=== PATIENT | male | born 1940 | race Caucasian/White ===

== ENCOUNTER 2024-02-17 08:22 | Inpatient (IN) | payer OTHER, SELFPAY ==
[2024-02-16 17:29] VITALS: BP 149/71
[2024-02-16 17:35] VITALS: BP 142/51
[2024-02-16 17:54] LABS: % Basophils 0.2 % (0-2); % Eosinophils 0.4 % (0-6); % Immature Granulocytes 2.9 % (0-0.5); % Lymphocytes 7.2 % (20.5-51.1); % Monocytes 5.5 % (1.7-9.3); % Neutrophils 83.8 % (42.2-75.2); Absolute Immature Granulocytes 0.2 10^3/uL (0-0.05); Absolute Lymphocytes 0.6 10^3/uL (1.2-3.4); Absolute Monocytes 0.4 10^3/uL (0.1-0.6); Absolute Neutrophils 6.7 10^3/uL (1.4-6.5); Hematocrit 23.9 % (39.0-52.0); Hemoglobin 8.1 g/dL (13.0-18.0); Mean Corp Hgb Conc. 33.9 g/dL (33.0-37.0); Mean Corpuscular Hgb 30.6 pg (27.0-31.0); Mean Corpuscular Volume 90.2 fL (80.0-94.0); Mean Platelet Volume 9.6 fL (7.4-10.4); Nucleated Red Blood Cells % 0 % (-); Platelet Count 232 10^3/uL (130-400); Red Blood Cell Count 2.65 10^6/uL (4.70-6.10); Red Cell Dist. Width 13.5 % (11.5-14.5)
[2024-02-16 18:05] LABS: APTT 38.3 Sec (23.4-35.0)
[2024-02-16 18:15] LABS: ALT (SGPT) 28 U/L (0-50); AST (SGOT) 30 U/L (17-59); Albumin 3.2 g/dl (3.5-5.0); Alkaline Phosphatase 199 U/L (38-126); Blood Urea Nitrogen 29 mg/dl (9-20); Calcium 8.9 mg/dl (8.4-10.2); Carbon Dioxide 27 mmol/L (22-30); Chloride 98 mmol/L (98-107); Glucose 100 mg/dl (70-99); Potassium 3.6 mmol/L (3.5-5.1); Sodium 136 mmol/L (135-145); Total Bilirubin 0.6 mg/dl (0.2-1.3); Total Protein 5.3 g/dl (6.3-8.2); eGFR > 60.00
--- NOTE | 2024-02-16 20:34 | ED.GENMED ---
History of Present Illness
General
Chief Complaint: Rectal Bleeding
Source: patient
Exam Limitations: none
Time Seen by Provider: 02/16/24 19:50
History of Present Illness
History of Present Illness:
83-year-old male progressive fatigue weakness some shortness of breath with exertion and dark stools over 3 weeks. Seen by the primary with a gradual decrease in his hemoglobin and sent for further evaluation. No Advil or Motrin. No history of
upper GI bleeds. He does take an aspirin
Past History
Past History
ED Past Medical History: Cancer (Prostate), HTN and NIDDM
ED Past Surgical History: Orthopedic
Social History
Tobacco: Former smoker
Living: with family
Employment: Retired
Review of Systems
Review of Systems
All Other Systems: Not applicable
Constitutional: Denies fever
Cardiac: Reports no symptoms
ABD/GI: Denies abdominal pain
Phy Exam
Physical Exam
Physical Exam:
GENERAL: Alert and oriented in no apparent distress
EYE: Orbits normal.
NECK: Supple, no significant adenopathy.
ENT: Pharynx without erythema
CARDIAC: Regular rate and rhythm without any obvious murmurs.
LUNGS: Clear breath sounds,normal
ABDOMEN: Soft, without focal tenderness or distention. Stool minimally dark but test negative
NEUROLOGICAL: Alert and oriented , grossly non-focal
SKIN: Warm and dry, no rash or lesion, no discoloration, skin intact.
MUSCULOSKELETAL: Moderate bilateral lower extremity pitting edema
PSYCH: Normal and appropriate interaction.
Course
Orders/Labs/Results
Orders:
Orders
02/16/24 17:45
Type+Screen Urgent
Complete Blood Count/With Diff Urgent
Comprehensive Metabolic Panel Urgent
PTT Urgent
02/16/24 20:29
Electrocardiogram (*1) Stat
Reason for Study: Other
Other Reason for Exam: chest pain
EKG- Treatment ONCE
CR Chest - 2 Views Urgent
Comment:
Reason For Exam: sob
02/16/24 20:30
Add On- LAB Urgent
Tests Added?: probnp
IV Insert/Care/Rem.- Treatment PRN
02/16/24 21:17
NT-proBNP Urgent
Comment: ADD ON
Troponin I Urgent
02/16/24 22:44
Admit/Transfer Patient As Directed
Co-Sign Provider:
Level of Care: Observation services
Assign to:: Telemetry
Physician / Group: gabrielle
Diagnosis: anemia
Reason for Telemetry: Arrhythmia
Date to Stop Telemetry: 02/19/24
Time to Stop Telemetry: 11:00
02/16/24 22:45
Code Status As Directed
Resuscitation Status: Do not resuscitate
Reached after discussion with pt or family/Healthcare POA: Yes
DNR Bracelet Application ONCE
02/16/24 22:49
Furosemide [Lasix] 20 mg IV NOW STA
02/19/24 11:00
DC Protocol for Telemetry ONCE
Abnormal Lab Results
02/16/24
17:45
RBC 2.65 L 10^6/uL
(4.70-6.10)
Hgb 8.1 L g/dL
(13.0-18.0)
Hct 23.9 L %
(39.0-52.0)
Abs Immat Gran (auto) 0.2 H 10^3/uL
(0-0.05)
Absolute Neuts (auto) 6.7 H 10^3/uL
(1.4-6.5)
Absolute Lymphs (auto) 0.6 L 10^3/uL
(1.2-3.4)
Immature Gran % 2.9 H %
(0-0.5)
Neutrophils % 83.8 H %
(42.2-75.2)
Lymphocytes % 7.2 L %
(20.5-51.1)
APTT 38.3 H Sec
(23.4-35.0)
BUN 29 H mg/dl
(9-20)
Glucose 100 H mg/dl
(70-99)
Alkaline Phosphatase 199 H U/L
(38-126)
Total Protein 5.3 L g/dl
(6.3-8.2)
Albumin 3.2 L g/dl
(3.5-5.0)
02/16/24 17:45
02/16/24 17:45
Vital Signs
Initial and Last Documented VS:
Initial Vital Signs
Temp Pulse Resp BP Pulse Ox
98.7 F 67 18 149/71 96
02/16/24 17:29 02/16/24 17:29 02/16/24 17:29 02/16/24 17:29 02/16/24 17:29
Last Documented Vital Signs
Temp Pulse Resp BP Pulse Ox
98.7 F 78 17 179/65 97
02/16/24 17:29 02/16/24 21:15 02/16/24 21:15 02/16/24 21:15 02/16/24 21:18
MDM/Problems Addressed
Differential Diagnosis Includes:
Symptomatic anemia. May have a slight component of CHF although lungs are clear. Anemia could be a recent upper GI bleed with description of stool and elevated BUN. Also possible that this is a red [place] and that this is a bone marrow issue.
Workup in progress. Will admit for symptomatic issues.
*Radiology
Radiology exam reviewed: preliminary read by ED provider (Negative)
*Pulse Oximetry
Patient hypoxic: no
*EKG
Interpreted by ED Provider?: Yes
Interpretation: abnormal
Comparison EKG: changes noted
Heart Rate: 75
Rate: normal
Rhythm: sinus and PVC's
[place]: normal axis
Interval: normal interval and third degree heart block
QRS Pattern: normal QRS
Ischemia: no ischemia
*Critical Care Note
Total Time (30-74mins, 75-104mins- exclusive of procedures): Not Applicable
Data Reviewed
Review of Other/Old Records Reveals: Labs, Records and Testing
ED Attending Note
-
Portions of this chart may have been created with voice recognition software.� Occasional wrong word or��sound alike� substitutions may have occurred due to the inherent limitations of voice recognition software.
Discharge Plan
Departure
Patient Disposition: Admit
Date of Disposition: 02/16/24
Time of Disposition: 22:05
Presentation/result/management discussed w/ accepting MD/DO: Hospitalist
Discharge Problem:
Symptomatic anemia, Possible recent upper GI bleed, Possible CHF
Interventions
Interventions:
*Risk Screen - Suicide Last Done: 02/16/24 17:29
*General Assessment Last Done: 02/16/24 17:29
*Neglect/Abuse Screening Last Done: 02/16/24 17:29
ED- Fall Risk Assessment Last Done: 02/16/24 21:18
EM-Vtfbki-Hmorlwngaj Assessment Last Done: 02/16/24 21:18
ED- Cardiac Assessment Last Done: 02/16/24 21:18
ED- Pulmonary Assessment Last Done: 02/16/24 21:18
[2024-02-16 21:15] VITALS: BP 179/65
[2024-02-16 21:18] VITALS: BMI 26.5
[2024-02-16 21:30] VITALS: BP 163/75
[2024-02-16 21:53] LABS: NT-proBNP 5240 pg/ml; Troponin I 0.015 ng/ml
--- NOTE | 2024-02-16 22:50 | HPS.HSE ---
Family Physician
-
Family Physician: Elijah Jarquin
Chief Complaint
-
fatigue
History of Present Illness
83-year-old male past medical history of diabetes, hypertension, osteoarthritis, GERD, prostate cancer, prior neurogenic bladder presenting with progressive fatigue, weakness. He had some dizziness this morning. He denies any shortness of breath.
He denies any palpitations, chest pain.
He was noted by his primary care physician to be anemic over the past month which has gotten worse. He was started on iron supplement a month ago and has had black stool over the same period of time. He denies any change in his bowel movements.
He denies taking any NSAIDs. He drinks alcohol occasionally.
He states that he had an endoscopy 20 years ago but he is unsure why he had it done. He denies any pathology. He also had a history of colonoscopy with resection of polyp and some post polypectomy bleeding.
He has chronic lower extremity edema and a scrape on his left lower extremity which is improving.
He denies smoking.
Medical History
Past Medical History
Past Medical History: Reports Other (diabetes, hypertension, osteoarthritis, GERD, prostate cancer, prior neurogenic bladder )
Past Surgical History: Reports None
Social History
Tobacco: Non-smoker
Alcohol: Occasional
Drug: None
Family History
Family History: Not pertinent
Allergies / Home Medications
Allergies reflects when Allergies were last updated in [employer].
Home Medications with original date entered in [employer]
Allergy/Medication List:
Allergies
Allergy/AdvReac Type Severity Reaction Status Date / Time
oxycodone [Oxycodone] Allergy Itching Verified 02/16/24 17:29
Home Medications
metoprolol succinate 100 mg tablet,extended release 24 hr 150 mg PO DAILY 01/28/13
multivitamin (Daily Multi-Vitamin tablet) 1 ea PO DAILY 01/28/13
calcium carbonate 600 mg-vitamin D3 10 mcg (400 unit) tablet (Calcium 600 + D(3)) 1 tab PO QPM ##0 07/08/16
doxazosin 8 mg tablet (Cardura) 8 mg PO DAILY 07/08/16
hydrochlorothiazide 25 mg tablet 25 mg PO DAILY 07/08/16
metformin 500 mg tablet 500 mg PO BID 07/08/16
acetaminophen 500 mg tablet 1,000 mg PO HSPRN PRN rls 02/16/24
aspirin 81 mg tablet,delayed release 81 mg PO DAILY 02/16/24
cholecalciferol (vitamin D3) 125 mcg (5,000 unit) tablet (Vitamin D3) 125 mcg PO DAILY 02/16/24
cyanocobalamin (vitamin B-12) 1,000 mcg tablet 1,000 mcg PO DAILY 02/16/24
ferrous sulfate 325 mg (65 mg iron) tablet 325 mg PO DAILY 02/16/24
furosemide 20 mg tablet (Lasix) 20 mg PO DAILY 02/16/24
glucosamine sulf dipot chlr,msm,chond 550 mg-C 30 mg-monica 1 mg capsule (Glucosamine Chondroitin) 1 cap PO BID 02/16/24
omeprazole 40 mg capsule,delayed release 40 mg PO DAILY 02/16/24
pravastatin 10 mg tablet 10 mg PO DAILY 02/16/24
tramadol 50 mg tablet 50 mg PO BIDPRN PRN moderate pains 02/16/24
tramadol 50 mg tablet 50 mg PO HS 02/16/24
Review of Systems
-
History Source: Patient
A 12 point ROS was completed and negative except as noted: Yes
Constitutional: Reports See HPI
EENT: Reports No Symptoms
Respiratory: Reports No Symptoms
Cardiac: Reports No Symptoms
Abdomen/GI: Reports See HPI
: Reports No Symptoms
Musculoskeletal: Reports No Symptoms
Skin: Reports No Symptoms
Neurological: Reports No Symptoms
Endocrine: Reports No Symptoms
Hematologic/Lymphatic: Reports No Symptoms
Psych: Reports No Symptoms
Physical Exam
Vital Signs
Vital Signs
Temp Pulse Resp BP Pulse Ox
98.7 F 78 17 179/65 97
02/16/24 17:29 02/16/24 21:15 02/16/24 21:15 02/16/24 21:15 02/16/24 21:18
Physical Exam
General: Well Developed, Well Nourished and No Apparent Distress
HEENT: NormoCephalic, Moist mucous membranes and Atraumatic
Respiratory: Clear
Cardiac: S1/S2 and Regular Rhythm; No Murmur or Rub
GI: Soft, Non Tender, Non Distended and Normal Bowel Sounds; No Organomegaly
Rectal: Deferred by Provider
Musculoskeletal: No Clubbing, No Cyanosis and No Edema
Skin: No Rash
Neuro: Nonfocal/grossly intact
Laboratory Results
-
02/16/24 17:45
02/16/24 17:45
Laboratory Results
APTT 38.3 Sec (23.4-35.0) H 02/16/24 17:45
Total Bilirubin 0.6 mg/dl (0.2-1.3) 02/16/24 17:45
AST 30 U/L (17-59) 02/16/24 17:45
ALT 28 U/L (0-50) 02/16/24 17:45
Alkaline Phosphatase 199 U/L (38-126) H 02/16/24 17:45
Troponin I 0.015 ng/ml 02/16/24 21:17
Data Reviewed
-
Lab Data: Labs Reviewed by me
Old Records: Reviewed
Impression/Plan
-
IMPRESSION:
PLAN:
# Symptomatic, progressive normocytic anemia possibly chronic upper GI bleeding
-Hemoglobin 8
-Hemoccult negative, black stools likely secondary to iron supplement, although BUN elevated
-Check iron studies, B12, folate
-Continue iron supplement
-IV Protonix 40 twice daily
-Hold aspirin
-Clear liquid diet
-GI consulted although no clear acute GI bleeding
# Mild CHF exacerbation
-Chest x-ray shows mild cardiomegaly with suspected mild interstitial cardiogenic pulm edema
-Cardiac BNP 5000
-Check I's and O's, daily weights
-20 IV Lasix dose
-Check echo
Type 2 diabetes
-Hold metformin
Essential hypertension
-Continue hydrochlorothiazide
-Continue metoprolol
Osteoarthritis
-Continue tramadol
GERD
-Continue Apriso
Prostate cancer
-Continue doxazosin
History of prior neurogenic bladder
DNR/DNI
DVT prophylaxis�SCDs
Clear liquid diet
[2024-02-16] MEDS: LASIX 20 MG IV (23:31)
[2024-02-16 23:37] VITALS: BP 164/70
[2024-02-17] VITALS (8 sets, daily range): BP systolic 125–168; BP diastolic 56–70; BMI 25.6
[2024-02-17] MEDS: PROTONIX IV 40 MG IV ×3 (00:57→19:51)
[2024-02-17] MEDS: NSS (PRESERVATIVE FREE) 10 ML IV ×3 (00:58→19:50)
[2024-02-17] MEDS: ULTRAM 50 MG PO ×2 (01:12→21:14)
--- NOTE | 2024-02-17 01:44 | PTCARENOTE ---
Received patient from ER, AAOx4. Patient ambulating with steady gait using single point cane. C/o b/l lower leg pain and medicated with tramadol. Scratch [place] noted to left lower leg, [employer]. Oriented to unit, call osuna in reach. Plan of care
continues.
[2024-02-17 07:27] LABS: % Basophils 0.4 % (0-2); % Eosinophils 0.8 % (0-6); % Immature Granulocytes 4.6 % (0-0.5); % Lymphocytes 10.2 % (20.5-51.1); % Monocytes 6.3 % (1.7-9.3); % Neutrophils 77.7 % (42.2-75.2); Absolute Eosinophils 0.1 10^3/uL (0-0.7); Absolute Immature Granulocytes 0.4 10^3/uL (0-0.05); Absolute Lymphocytes 0.8 10^3/uL (1.2-3.4); Absolute Monocytes 0.5 10^3/uL (0.1-0.6); Absolute Neutrophils 5.9 10^3/uL (1.4-6.5); Hematocrit 24.6 % (39.0-52.0); Hemoglobin 7.8 g/dL (13.0-18.0); Mean Corp Hgb Conc. 31.7 g/dL (33.0-37.0); Mean Corpuscular Hgb 29.5 pg (27.0-31.0); Mean Corpuscular Volume 93.2 fL (80.0-94.0); Mean Platelet Volume 9.9 fL (7.4-10.4); Nucleated Red Blood Cells % 0 % (-); Platelet Count 234 10^3/uL (130-400); Red Blood Cell Count 2.64 10^6/uL (4.70-6.10); Red Cell Dist. Width 13.6 % (11.5-14.5); White Blood Cell Count 7.6 10^3/uL (4.8-10.8)
[2024-02-17 08:12] LABS: ALT (SGPT) 26 U/L (0-50); AST (SGOT) 27 U/L (17-59); Albumin 2.9 g/dl (3.5-5.0); Alkaline Phosphatase 174 U/L (38-126); Blood Urea Nitrogen 24 mg/dl (9-20); Calcium 8.8 mg/dl (8.4-10.2); Carbon Dioxide 30 mmol/L (22-30); Chloride 96 mmol/L (98-107); Estimated Creatinine Clearance 51 ml/min; Glucose 105 mg/dl (70-99); Iron 34 ug/dl (49-181); Potassium 3.6 mmol/L (3.5-5.1); Sodium 135 mmol/L (135-145); Total Bilirubin 0.6 mg/dl (0.2-1.3); eGFR > 60.00
[2024-02-17 08:21] LABS: Percent Saturation 19 % (20-50); Total Iron Binding Capacity 177 ug/dl (261-462)
[2024-02-17] MEDS: THERAGRAN 1 TABLET PO (08:31)
[2024-02-17] MEDS: FEOSOL 325 MG PO (08:31)
[2024-02-17] MEDS: TOPROL XL 150 MG PO (08:31)
[2024-02-17] MEDS: TYLENOL 1000 MG PO (08:32)
[2024-02-17] MEDS: VITAMIN D3 (cholecalciferol) 125 MCG PO (08:32)
[2024-02-17] MEDS: CARDURA 8 MG PO (08:33)
[2024-02-17] MEDS: PRAVACHOL 10 MG PO (08:33)
[2024-02-17 09:33] LABS: Folate > 20.0 ng/ml (2.76-20); Vitamin B12 969 pg/ml (239-931)
[2024-02-17] MEDS: VITAMIN B-12 1000 MCG PO (10:20)
--- NOTE | 2024-02-17 10:53 | CON.GI ---
Addendum entered and electronically signed by Ezio Skelton MD 02/17/24 13:44:
Patient seen and examined, agree with nurse practitioner note. Patient presents with increasing shortness of breath and weakness. He has a history of chronic anemia, which he states dates back to when he was in high school, though more recently
over the past 6 months has significantly decreased from 10.2 in May to 7.8 now. When his hemoglobin was lower than his baseline he was advised to stop NSAIDs and was started on PPI, and he was started on oral iron, and since then has noted dark
stools, though these are formed. Denies any change in bowel habits, dysphagia or odynophagia or abdominal pain. On admission he was found to have very elevated proBNP and chest x-ray consistent with pulmonary edema. His echo showed normal EF
though likely diastolic dysfunction and mild to moderate TR. On exam he has no significant abdominal tenderness. His iron studies are mixed. He likely has underlying multifactorial anemia with chronic anemia dating back to when he was in high
school, possible thalassemia, with more significant drop over the past 6 months, possibly secondary to GI blood loss, possibly from angiectasia or underlying malignancy, though no signs of acute brisk bleeding. At this point we will continue
supportive care, await cardiology evaluation that was reassuring that echo did not show any systolic heart failure. When doing better from pulmonary standpoint we will plan EGD and colonoscopy, possibly Friday.
Original Note:
Consultation
-
Date/Time Consultation Requested: 02/17/24 0815
Date/Time Consultation Performed: 02/17/24 1053
Requesting Provider: Dr. Pappas
Performing Provider: Dr. Skelton/MAHI Mujica
Reason for Consultation: anemia
Medical History
Chief Complaint / HPI
Chief Complaint: weakness, fatigue SOB
History of Present Illness:
83-year-old male with past medical history of hypertension, osteoarthritis, GERD, prostate cancer, neurogenic bladder, diabetes, hyperlipidemia, peripheral vascular disease and lower extremity edema, anemia with worsening anemia noticed by PCP and
recently started on iron about 1 month ago by PCP. The patient presents to the emergency room with progressive fatigue, weakness and dizziness. Asked to evaluate for anemia. From review of prior records it appears that patient's baseline
hemoglobin is in the 10-11 range since 2012. Patient's labs in May 2023 showed a hemoglobin of 10.2. Repeat labs performed 08/26/2023 show hemoglobin of 10.6. Repeat hemoglobin 09/24/2023 was 9.7. In August the patient had some GI discomfort
and was started on omeprazole 40 mg with improvement of his discomfort by his PCP. Over the past 3 weeks he had progressive weakness, shortness of breath with dyspnea on exertion with darker stools however he was started on oral iron. The patient
is on aspirin 81 mg daily. Patient presented with a hemoglobin of 8.1, this morning it is 7.8. Rectal was performed by the ER that was dark and OB negative. States that he was taken Aleve 2 at bedtime every evening for 'a long time'. Until
approximately 3 weeks ago when his primary told him to stop this. He states he had dark stools and his primary told him to stop. He is unsure if this overlaps at the same time he started his oral iron or if this was prior to. The patient has been
on omeprazole 40 mg for at least a couple months prior to this. Patient does not recall having abdominal discomfort or starting a PPI as far as timeline goes. At the present time he denies any fevers, chills, nausea, vomiting, melena,
hematochezia, dysphagia or odynophagia. He denies any early satiety or unintentional weight loss. He denies any change in his bowel habits, stool caliber or consistency. He does notice darkening of stools. He feels that this correlates with the
timeline associated with iron however is unsure if there was an overlap during the time of his Aleve usage. Patient with an iron of 34, TIBC 177, iron percent saturation 19, ferritin 423. B12 of 969, folate greater than 20. Patient is on B12
supplementation at home. Patient's proBNP is 5240. Chest x-ray shows mild cardiomegaly with suspected mild interstitial cardiogenic pulmonary edema.
Past Medical History
Past Medical History: GERD, HTN, Hypercholesterolemia, NIDDM and Other (Osteoarthritis, prostate cancer, neurogenic bladder, peripheral vascular disease, lower extremity edema, anemia)
Social History
Tobacco: Non-Smoker
Alcohol: Occasional
Drug: None
Family History
Family History: Other (Family history gastrointestinal malignancy or IBD)
Allergies / Home Medications
Allergy/AdvReac Type Severity Reaction Status Date / Time
oxycodone [Oxycodone] Allergy Itching Verified 02/16/24 17:29
�Medication �Instructions �Recorded
metoprolol succinate 100 mg 150 mg PO DAILY Heart Failure 01/28/13
tablet,extended release 24 hr
multivitamin (Daily Multi-Vitamin 1 ea PO DAILY Supplement 01/28/13
tablet)
calcium carbonate 600 mg-vitamin 1 tab PO QPM Supplement ##0 07/08/16
D3 10 mcg (400 unit) tablet
(Calcium 600 + D(3))
doxazosin 8 mg tablet (Cardura) 8 mg PO DAILY Urinary Issue 07/08/16
hydrochlorothiazide 25 mg tablet 25 mg PO DAILY Blood Pressure 07/08/16
metformin 500 mg tablet 500 mg PO BID Diabetes 07/08/16
acetaminophen 500 mg tablet 1,000 mg PO HSPRN PRN rls 02/16/24
aspirin 81 mg tablet,delayed 81 mg PO DAILY Blood Clot 02/16/24
release Prevention/Tx
cholecalciferol (vitamin D3) 125 125 mcg PO DAILY Supplement 02/16/24
mcg (5,000 unit) tablet (Vitamin
D3)
cyanocobalamin (vitamin B-12) 1,000 mcg PO DAILY Supplement 02/16/24
1,000 mcg tablet
ferrous sulfate 325 mg (65 mg 325 mg PO DAILY Supplement 02/16/24
iron) tablet
furosemide 20 mg tablet (Lasix) 20 mg PO DAILY Fluid 02/16/24
Retention/Swelling
glucosamine sulf dipot 1 cap PO BID Supplement 02/16/24
chlr,msm,chond 550 mg-C 30 mg-monica
1 mg capsule (Glucosamine
Chondroitin)
omeprazole 40 mg capsule,delayed 40 mg PO DAILY Gastrointestinal 02/16/24
release Issue
pravastatin 10 mg tablet 10 mg PO DAILY High Cholesterol 02/16/24
tramadol 50 mg tablet 50 mg PO BIDPRN PRN moderate pains 02/16/24
tramadol 50 mg tablet 50 mg PO HS Pain 02/16/24
Review of Systems
-
All other systems: A 12 pt ROS was Negative except as stated above in HPI
Vital Signs
Temp Pulse Resp BP Pulse Ox
98.0 F 78 18 160/64 94
02/17/24 07:25 02/17/24 07:25 02/17/24 07:25 02/17/24 07:25 02/17/24 07:25
Physical Exam
Exam
General: No Apparent Distress
HEENT: Anicteric
Respiratory: Clear (Anterior)
Cardiac: Irregular Rhythm
GI: Soft, Non Tender, Non Distended and Normal Bowel Sounds
Rectal: Other (Stool OB negative per ER)
Skin: Warm and Dry
Psych: Calm
Results
WBC 7.6 10^3/uL (4.8-10.8) 02/17/24 06:46
Hgb 7.8 g/dL (13.0-18.0) L 02/17/24 06:46
Hct 24.6 % (39.0-52.0) L 02/17/24 06:46
MCV 93.2 fL (80.0-94.0) 02/17/24 06:46
Plt Count 234 10^3/uL (130-400) 02/17/24 06:46
Absolute Neuts (auto) 5.9 10^3/uL (1.4-6.5) 02/17/24 06:46
APTT 38.3 Sec (23.4-35.0) H 02/16/24 17:45
Sodium 135 mmol/L (135-145) 02/17/24 06:46
Potassium 3.6 mmol/L (3.5-5.1) 02/17/24 06:46
Chloride 96 mmol/L (98-107) L 02/17/24 06:46
Carbon Dioxide 30 mmol/L (22-30) 02/17/24 06:46
BUN 24 mg/dl (9-20) H 02/17/24 06:46
Creatinine 1.1 mg/dL (0.7-1.3) 02/17/24 06:46
Calcium 8.8 mg/dl (8.4-10.2) 02/17/24 06:46
Total Bilirubin 0.6 mg/dl (0.2-1.3) 02/17/24 06:46
AST 27 U/L (17-59) 02/17/24 06:46
ALT 26 U/L (0-50) 02/17/24 06:46
Alkaline Phosphatase 174 U/L (38-126) H 02/17/24 06:46
Diagnostic Image Results:
CXR 02/16/24:
1. Mild cardiomegaly with suspected mild interstitial cardiogenic pulmonary edema.
2. Mild bilateral lung hyperinflation.
3. Mild subsegmental atelectasis and scarring in both lower lungs.
Prior GI Procedures:
EGD: never had
Colonoscopy: 01/04/2009 ([facility])
- Diverticulosis in the sigmoid colon and in the
descending colon.
- The examined portion of the ileum was normal.
Assessment / Plan
-
83-year-old male with past medical history of hypertension, osteoarthritis, GERD, prostate cancer, neurogenic bladder, diabetes, hyperlipidemia, peripheral vascular disease and lower extremity edema, anemia with worsening anemia noticed by PCP and
recently started on iron about 1 month ago by PCP. The patient presents to the emergency room with progressive fatigue, weakness and dizziness. Asked to evaluate for anemia. From review of prior records it appears that patient's baseline
hemoglobin is in the 10-11 range since 2012. Patient's labs in May 2023 showed a hemoglobin of 10.2. Repeat labs performed 08/26/2023 show hemoglobin of 10.6. Repeat hemoglobin 09/24/2023 was 9.7. Patient with 3-week history of weakness,
progressive shortness of breath and dark stools. Stools negative for occult blood. Hemoglobin in the ER on arrival was 8.1, this a.m. is 7.8. Patient was taking Aleve 2 pills at bedtime for quite some time. This was stopped approximately 3 weeks
ago when he had dark stool. He is unsure if he was taking oral iron at that time. He has been on omeprazole 40 mg daily for the past couple months. He denies any abdominal discomfort at this time. Iron studies with iron deficiency however also
mixed picture. Family history of 'blood cancer in his mother'. Patient with elevated proBNP of 5240 with chest x-ray showing mild cardiomegaly with suspected mild interstitial cardiogenic pulmonary edema.
Impression:
Anemia, acute on chronic-> currently OB negative
Plan:
-Continue Pantoprazole to 40 mg BID
-Currently patient being treated for pulm edema and BNP > 5000
-Once ok from CV point of view consider EGD
-Recommend Heme eval
-Can consider outpatient colonoscopy as well. Was due in 2019 for screening only, although no fam hx and was 79 at that time.
Data Reviewed
-
Old Records: Reviewed
-
-
Thank you for consultation and allowing me to participate in the patient's care. Please call the continuing education [facility] physician during the after hours with any questions or concerns.
--- NOTE | 2024-02-17 11:50 | W.PN.HOSP.TC ---
Today's Communication/Plan
-
IV lasix
echo
cards
PPI bid
trend h/h
Assessment / Plan
Assessment / Plan
# Symptomatic, progressive normocytic anemia possibly chronic upper GI bleeding
-Hemoglobin 7.8. Transfuse for Hgb <7.
-Hemoccult negative, black stools likely secondary to iron supplement, although BUN elevated
-B12 and folate wnl. On po iron supplements.
-Continue iron supplement
-IV Protonix 40 twice daily
-Hold aspirin
-Clear liquid diet
-GI consulted
# Mild acute on chronic exacerbation
-Chest x-ray shows mild cardiomegaly with suspected mild interstitial cardiogenic pulm edema
-Cardiac BNP 5000
-Check I's and O's, daily weights
-ECHO with Normal left ventricular systolic function. Normal regional wall motion. Mild concentric left ventricular hypertrophy. Left ventricular ejection fraction is 55-60% by volumetric assessment. Stage II diastolic dysfunction suggestive of
abnormal relaxation and increased filling pressures. Mild mitral regurgitation. Mild to moderate tricuspid regurgitation. Estimated pulmonary artery. Trivial pericardial effusion.
-IV lasix 20mg
-Cards recs
Type 2 diabetes
-Hold metformin
-Check a1c, accuchecks.
Essential hypertension
-hold hydrochlorothiazide as on IV lasix
-Continue metoprolol
Osteoarthritis
-Continue tramadol
GERD
-Continue Apriso
Prostate cancer
-Continue doxazosin
History of prior neurogenic bladder
DNR/DNI
DVT prophylaxis�SCDs
Clear liquid diet
Anticipated Discharge: > 48 hours
Subjective/Interval History
-
Date of Service: February 17, 2024
denies cp or sob
Objective Data
-
Labs:
Laboratory Results
02/17/24
06:46
WBC 7.6
Hgb 7.8 L
Hct 24.6 L
Plt Count 234
Sodium 135
Potassium 3.6
Chloride 96 L
Carbon Dioxide 30
BUN 24 H
Creatinine 1.1
Glucose 105 H
Calcium 8.8
Total Bilirubin 0.6
AST 27
ALT 26
Alkaline Phosphatase 174 H
Vital Signs:
Vital Signs
Temp Pulse Resp BP Pulse Ox
98.3 F 69 18 136/59 94
02/17/24 11:07 02/17/24 11:07 02/17/24 11:07 02/17/24 11:07 02/17/24 07:25
I&O
02/16/24 02/17/24 02/18/24
06:59 06:59 06:59
Intake Total 480 / 480
Output Total 800 / 800
Balance -320 / -320
Physical Exam
-
General: Well Developed and No Apparent Distress
HEENT: Normocephalic, Atraumatic and Moist Mucous Membranes
Respiratory: Clear to Auscultation
Cardiac: Regular Rhythm and S1/S2; Negative Murmur, Rub or Gallop
GI: Soft, Nontender, Nondistended and Normal Bowel Sounds; Negative Organomegaly
Rectal: Deferred by Provider
Musculoskeletal: No Clubbing, No Cyanosis, No Edema, Edema, Right Lower Extrem and Edema, Left Lower Extrem
Skin: Negative Rash
Neuro: Awake, No Motor Deficits and Nonfocal/Grossly Intact
Psych: Calm
Data Reviewed
-
Total Time Spent with Patient (in minutes): 55
[2024-02-17] MEDS: LASIX 20 MG IV (12:54)
--- NOTE | 2024-02-17 14:11 | CON.CAR ---
Addendum entered and electronically signed by Rojelio Enrique MD 02/17/24 15:31:
I saw and examined the patient.
The Trainmaster's note was reviewed and I agree with the note.
Comment: Briefly, 83-year-old man past medical history of heart failure with preserved ejection fraction presenting with worsening dyspnea and melena concerning for possible UGIB
Cardiology is consulted with concern for acute on chronic heart failure
Patient reports worsening dyspnea and lower extremity edema
Here proBNP is greater than 5000 in keeping with decompensated heart failure
Transthoracic echocardiogram with preserved LV function and no high-grade valve disease, similar to prior study in 2022
Agree with IV diuresis
Monitor daily weights and renal function closely
Would likely benefit from compression stockings
Workup of possible GI bleed per gastroenterology
Original Note:
Consultation
Consultation Request
Date/Time Consultation Requested: 02/17/24
Date/Time Consultation Performed: 02/17/24
Requesting Provider: Dr. Pappas
Performing Provider: Dr. Enrique
Reason for Consultation: Acute HF, anemia
Medical History
-
History of Present Illness:
Patient came to [facility] last night with increased SOB and melena, cardiology is consulted for possible acute HF. Patient says that his PCP started him on iron a few weeks ago and his stools started to look black which was new for him. He has a h/o
anemia, but prior to that was not taking an iron supplement. He came to [facility] because he was feeling tired and weak. He has RAMIREZ. He says he has chronic LE edema which he does not think is any worse lately. He takes Lasix 20 mg PO daily and HCTZ 25 mg
daily. At his last office visit 01/14/24 his Lasix was increased to 40 mg daily for 3 -5 days for RAMIREZ and then he was to resume his usual dose. Patient had labs 02/08/24 and his BNP was up so the cardiology office called him to advise that he increase
Lasix back to 40 mg daily again for a few days and we learned that he had inadvertently been taking Lasix 40 mg PO daily since the 01/14/24 office visit, so patient was advised to take Lasix 40 mg AM and 20 mg PM daily for 3 days and then go back to
Lasix 40 mg daily. Patient feels like edema was a bit better with the extra Lasix, but was still tired and so when his PCP repeated labs and he was more anemic he was sent to [facility].
PMH:
Chronic HFpEF
Secondary pulmonary HTN
HTN
DM 2
Hyperlipidemia
Frequent PVCs
Past Medical History
Past Medical History: Other (in HPI)
Past Surgical History: Orthopedic
Social History
Tobacco: Former Smoker
Alcohol: Occasional (a couple of times a month)
Drug: None
Personal:
Living: With Family
Family History
Family History: Cancer (leukemia)
Allergies / Home Medications
Allergy/AdvReac Type Severity Reaction Status Date / Time
oxycodone [Oxycodone] Allergy Itching Verified 02/16/24 17:29
�Medication �Instructions �Recorded �Confirmed �Type
metoprolol succinate 100 mg 150 mg PO DAILY Heart Failure 01/28/13 02/16/24 History
tablet,extended release 24 hr
multivitamin (Daily Multi-Vitamin 1 ea PO DAILY Supplement 01/28/13 02/16/24 History
tablet)
calcium carbonate 600 mg-vitamin 1 tab PO QPM Supplement ##0 07/08/16 02/16/24 History
D3 10 mcg (400 unit) tablet
(Calcium 600 + D(3))
doxazosin 8 mg tablet (Cardura) 8 mg PO DAILY Urinary Issue 07/08/16 02/16/24 History
hydrochlorothiazide 25 mg tablet 25 mg PO DAILY Blood Pressure 07/08/16 02/16/24 History
metformin 500 mg tablet 500 mg PO BID Diabetes 07/08/16 02/16/24 History
acetaminophen 500 mg tablet 1,000 mg PO HSPRN PRN rls 02/16/24 02/16/24 History
aspirin 81 mg tablet,delayed 81 mg PO DAILY Blood Clot 02/16/24 02/16/24 History
release Prevention/Tx
cholecalciferol (vitamin D3) 125 125 mcg PO DAILY Supplement 02/16/24 02/16/24 History
mcg (5,000 unit) tablet (Vitamin
D3)
cyanocobalamin (vitamin B-12) 1,000 mcg PO DAILY Supplement 02/16/24 02/16/24 History
1,000 mcg tablet
ferrous sulfate 325 mg (65 mg 325 mg PO DAILY Supplement 02/16/24 02/16/24 History
iron) tablet
furosemide 20 mg tablet (Lasix) 20 mg PO DAILY Fluid 02/16/24 02/16/24 History
Retention/Swelling
glucosamine sulf dipot 1 cap PO BID Supplement 02/16/24 02/16/24 History
chlr,msm,chond 550 mg-C 30 mg-monica
1 mg capsule (Glucosamine
Chondroitin)
omeprazole 40 mg capsule,delayed 40 mg PO DAILY Gastrointestinal 02/16/24 02/16/24 History
release Issue
pravastatin 10 mg tablet 10 mg PO DAILY High Cholesterol 02/16/24 02/16/24 History
tramadol 50 mg tablet 50 mg PO BIDPRN PRN moderate pains 02/16/24 02/16/24 History
tramadol 50 mg tablet 50 mg PO HS Pain 02/16/24 02/16/24 History
Review of Systems
-
History Source: Patient
All other systems: Negative unless noted
Physical Exam
Vital Signs
Temp Pulse Resp BP Pulse Ox
98.3 F 69 18 136/59 94
02/17/24 11:07 02/17/24 11:07 02/17/24 11:07 02/17/24 11:02/17/24 07:25
GEN: NAD. AAOx3
HEENT: EOMI, MMM
LUNGS: CTA B/L, no wheezes or rales
CV: Reg, S1/S2, no murmur
ABD: soft, BS+, NT, ND
EXT: +1 B/L LE edema. No clubbing, cyanosis or lesions B/L
NEURO: Gross non-focal
SKIN: Warm, dry and pink. No rash
Lab Results
02/17/24 06:46
02/17/24 06:46
Troponin I 0.015 ng/ml 02/16/24 21:17
Mxy-Q-Ydrozpamayq Pept 5240 pg/ml 02/16/24 21:17
Impression / Plan
-
PCP: Dr. Jarquin
Cardiology: Dr. Maureen Dejesus
Impression:
Melena and anemia
Acute on chronic HFpEF
Secondary pulmonary HTN
HTN
DM 2
Hyperlipidemia
Frequent PVCs
Low level normal potassium level
Echo 09/02/2022: EF 55 to 60%, moderate concentric LVH, stage II diastolic dysfunction, trace MR
Echo 02/17/2024: EF 55 to 60%, mild concentric LVH, stage II diastolic dysfunction, normal RV size and function, mild MR, mild to moderate TR with PAP 45 to 50 mmHg
Plan:
-Patient came to [facility] last night with increased SOB and melena, cardiology is consulted for possible acute HF. Patient says that his PCP started him on iron a few weeks ago and his stools started to look black which was new for him. He has a h/o
anemia, but prior to that was not taking an iron supplement. He came to [facility] because he was feeling tired and weak. He has RAMIREZ. He says he has chronic LE edema which he does not think is any worse lately. He takes Lasix 20 mg PO daily and HCTZ 25 mg
daily. At his last office visit 01/14/24 his Lasix was increased to 40 mg daily for 3 -5 days for RAMIREZ and then he was to resume his usual dose. Patient had labs 02/08/24 and his BNP was up so the cardiology office called him to advise that he increase
Lasix back to 40 mg daily again for a few days and we learned that he had inadvertently been taking Lasix 40 mg PO daily since the 01/14/24 office visit, so patient was advised to take Lasix 40 mg AM and 20 mg PM daily for 3 days and then go back to
Lasix 40 mg daily. Patient feels like edema was a bit better with the extra Lasix, but was still tired and so when his PCP repeated labs and he was more anemic he was sent to [facility].
-Appears to be in acute HF with pro-BNP 5240 and CXR with mild interstitial cardiogenic pulmonary edema. Although interestingly his weight is below previous office weight from 01/14/24.
-Patient was actually taking Lasix 40 mg PO daily prior to admission as a result of cardiology office visit 01/14/24 and then labs with elevated BNP 02/08/24. Will increase Lasix to 40 mg IV BID.
-Cre stable thus far
-Will stop HCTZ, not clear why he is on HCTZ and Lasix
-EF stable by echo with stage II diastolic dysfunction
-Cont Toprol XL 150 mg daily.
-Patient with known frequent PVCs. Patient has previously declined a long-term monitor to assess burden. Cont Toprol XL.
-Potassium is low normal at 3.6. Will supplement with increased Lasix IV dosing. Check magnesium level
-Agree with work-up of anemia. Patient with normal pulse ox on room air. He can proceed with GI work-up without further cardiac testing.
[2024-02-17] MEDS: KCL 40 MEQ PO (15:30)
[2024-02-17 16:11] LABS: Magnesium 1.2 mg/dl (1.6-2.3)
[2024-02-17 16:47] LABS: Glucose - Point of Care 118 mg/dl (70-99)
[2024-02-17] MEDS: NOVOLOG FLEXPEN-LOW RESISTANCE SC (17:04)
[2024-02-17] MEDS: MAGNESIUM SULFATE 100 IV (17:04)
[2024-02-17] MEDS: LASIX 40 MG IV (19:51)
[2024-02-17 21:08] LABS: Glucose - Point of Care 210 mg/dl (70-99)
[2024-02-18] VITALS (7 sets, daily range): BP systolic 135–162; BP diastolic 57–70; PULSE 80; O2SAT 97; BMI 25.0
[2024-02-18] MEDS: TYLENOL 1000 MG PO ×2 (02:40→19:50)
--- NOTE | 2024-02-18 03:28 | W.PN.UPDATE ---
Update Note
Progress Note Update
Patient has a new onset of fever 100.4 complained of SOB, increasing cough, and sore throat. Denied chest pain. SPO2 96 on RA, bp 162/70, hr 79. Diminished lung sounds on exam.
New order placed of lactic acid, Covid test, blood cultures, Duo nebs as needed for sob or wheezing and will repeat chest x-ray.
[2024-02-18] MEDS: ROBITUSSIN 100 MG PO (03:48)
[2024-02-18 04:02] LABS: % Basophils 0.4 % (0-2); % Eosinophils 0.8 % (0-6); % Immature Granulocytes 3.7 % (0-0.5); % Lymphocytes 10.6 % (20.5-51.1); % Monocytes 6.2 % (1.7-9.3); % Neutrophils 78.3 % (42.2-75.2); Absolute Eosinophils 0.1 10^3/uL (0-0.7); Absolute Immature Granulocytes 0.3 10^3/uL (0-0.05); Absolute Lymphocytes 0.8 10^3/uL (1.2-3.4); Absolute Monocytes 0.5 10^3/uL (0.1-0.6); Absolute Neutrophils 6.2 10^3/uL (1.4-6.5); Hematocrit 23.9 % (39.0-52.0); Hemoglobin 7.7 g/dL (13.0-18.0); Mean Corp Hgb Conc. 32.2 g/dL (33.0-37.0); Mean Corpuscular Hgb 29.8 pg (27.0-31.0); Mean Corpuscular Volume 92.6 fL (80.0-94.0); Mean Platelet Volume 9.8 fL (7.4-10.4); Nucleated Red Blood Cells % 0 % (-); Platelet Count 235 10^3/uL (130-400); Red Blood Cell Count 2.58 10^6/uL (4.70-6.10); Red Cell Dist. Width 13.6 % (11.5-14.5); White Blood Cell Count 7.9 10^3/uL (4.8-10.8)
[2024-02-18 04:14] LABS: COVID-19 Antigen Negative (Negative)
--- NOTE | 2024-02-18 04:26 | PTCARENOTE ---
Pt w/ 7-beat run of VT. Pt asymptomatic.
[2024-02-18 04:30] LABS: Lactic Acid 0.7 mmol/L (0.7-2.0)
[2024-02-18 04:36] LABS: Blood Urea Nitrogen 24 mg/dl (9-20); Calcium 8.7 mg/dl (8.4-10.2); Carbon Dioxide 28 mmol/L (22-30); Chloride 97 mmol/L (98-107); Estimated Creatinine Clearance 62 ml/min; Glucose 119 mg/dl (70-99); Potassium 3.8 mmol/L (3.5-5.1); Sodium 134 mmol/L (135-145); eGFR > 60.00
[2024-02-18 05:04] LABS: Magnesium 1.9 mg/dl (1.6-2.3)
[2024-02-18] MEDS: TYLENOL 650 MG PO (06:32)
[2024-02-18 07:10] LABS: Glucose - Point of Care 135 mg/dl (70-99)
--- NOTE | 2024-02-18 07:21 | W.PN.GI.CBS2 ---
Today's Communication / Plan
-
Please see assessment and plan for details.
Assessment / Plan
-
1. Anemia: With mild chronic anemia with more acute drop, with mixed iron studies, though no gross bleeding now, hemoglobin remained stable, likely some component of GI blood loss. At this point will plan EGD and colonoscopy when his
cardiopulmonary status is improved, pending fever workup and continue diuresis, possibly Friday.
Subjective
Subjective
Date of Service: February 18, 2024
Patient with her overnight and sweats with some cough. COVID and chest x-ray pending. Feels that his breathing is okay, about the same as yesterday. Seen by cardiology, consistent with volume overload and diastolic dysfunction, diuresing
Objective
Data Reviewed
Laboratory Data:
Laboratory Results
02/18/24 03:47
02/18/24 03:48
Laboratory Results
APTT 38.3 Sec (23.4-35.0) H 02/16/24 17:45
Magnesium 1.9 mg/dl (1.6-2.3) 02/18/24 03:48
Total Bilirubin 0.6 mg/dl (0.2-1.3) 02/17/24 06:46
AST 27 U/L (17-59) 02/17/24 06:46
ALT 26 U/L (0-50) 02/17/24 06:46
Alkaline Phosphatase 174 U/L (38-126) H 02/17/24 06:46
Vital Signs and I&O:
Vital Signs
Temp Pulse Resp BP Pulse Ox
100.4 F H 80 20 162/70 96
02/18/24 03:43 02/18/24 06:06 02/18/24 06:06 02/18/24 03:43 02/18/24 06:06
I&O
02/17/24 02/18/24 02/19/24
06:59 06:59 06:59
Intake Total 480 / 480 1280 / 1280
Output Total 800 / 800 2124 / 2124
Balance -320 / -320 -845 / -845
Physical Exam
Physical Exam
General: NAD
Abdomen: normal bowel sounds, soft, no tenderness, no masses or bruits, no ascites
[2024-02-18] MEDS: NOVOLOG FLEXPEN-LOW RESISTANCE SC (08:11)
[2024-02-18] MEDS: PRAVACHOL 10 MG PO (08:12)
[2024-02-18] MEDS: KCL 20 MEQ PO ×2 (08:12→19:50)
[2024-02-18] MEDS: FEOSOL 325 MG PO (08:12)
[2024-02-18] MEDS: CARDURA 8 MG PO (08:12)
[2024-02-18] MEDS: VITAMIN B-12 1000 MCG PO (08:12)
[2024-02-18] MEDS: THERAGRAN 1 TABLET PO (08:12)
[2024-02-18] MEDS: TOPROL XL 150 MG PO (08:12)
[2024-02-18] MEDS: VITAMIN D3 (cholecalciferol) 125 MCG PO (08:12)
[2024-02-18] MEDS: LASIX 40 MG IV ×2 (08:13→16:31)
[2024-02-18] MEDS: NSS (PRESERVATIVE FREE) 10 ML IV ×2 (08:13→19:49)
[2024-02-18] MEDS: PROTONIX IV 40 MG IV ×2 (08:13→19:49)
[2024-02-18 11:44] LABS: Glucose - Point of Care 188 mg/dl (70-99)
--- NOTE | 2024-02-18 11:49 | W.PN.HOSP.TC ---
Today's Communication/Plan
-
IV lasix
trend cr
monitor fever curve
trend hgb
Assessment / Plan
Assessment / Plan
# Symptomatic, progressive normocytic anemia possibly chronic upper GI bleeding
-Hemoglobin 7.7. Transfuse for Hgb <7.
-Hemoccult negative, black stools likely secondary to iron supplement, although BUN elevated
-B12 and folate wnl. On po iron supplements.
-Continue iron supplement
-IV Protonix 40 twice daily
-Hold aspirin
-Plan for tentative EGD/Colon on friday.
-GI consulted
# Mild acute on chronic HFpEF exacerbation
-Chest x-ray shows mild cardiomegaly with suspected mild interstitial cardiogenic pulm edema
-Cardiac BNP 5000
-Check I's and O's, daily weights
-ECHO with Normal left ventricular systolic function. Normal regional wall motion. Mild concentric left ventricular hypertrophy. Left ventricular ejection fraction is 55-60% by volumetric assessment. Stage II diastolic dysfunction suggestive of
abnormal relaxation and increased filling pressures. Mild mitral regurgitation. Mild to moderate tricuspid regurgitation. Estimated pulmonary artery. Trivial pericardial effusion.
-IV lasix 40mg BID.
-Cards recs
#Fever x 1 episode
CXR with pulm edema
COVID negative
blood culture in lab
no urinary symptoms
unclear etiology
Type 2 diabetes
-Hold metformin
-Check a1c, accuchecks.
Neuropathic pain
-start low dose gabapentin 100mg TID
Essential hypertension
-hold hydrochlorothiazide as on IV lasix
-Continue metoprolol
Osteoarthritis
-Continue tramadol
GERD
-Continue Apriso
Prostate cancer
-Continue doxazosin
History of prior neurogenic bladder
DNR/DNI
DVT prophylaxis�SCDs
Clear liquid diet
Anticipated Discharge: > 48 hours
Subjective/Interval History
-
Date of Service: February 18, 2024
states of left foot neuropathic pain
overnight with fever
Objective Data
-
Labs:
Laboratory Results
02/18/24 02/18/24
03:47 03:48
WBC 7.9
Hgb 7.7 L
Hct 23.9 L
Plt Count 235
Sodium 134 L
Potassium 3.8
Chloride 97 L
Carbon Dioxide 28
BUN 24 H
Creatinine 0.9
Glucose 119 H
Calcium 8.7
Vital Signs:
Vital Signs
Temp Pulse Resp BP Pulse Ox
98.6 F 77 16 135/57 96
02/18/24 11:02 02/18/24 11:02 02/18/24 11:02 02/18/24 11:02 02/18/24 11:02
I&O
02/17/24 02/18/24 02/19/24
06:59 06:59 06:59
Intake Total 480 / 480 1280 / 1280
Output Total 800 / 800 2125 / 2125
Balance -320 / -320 -845 / -845
Physical Exam
-
General: Well Developed and No Apparent Distress
HEENT: Normocephalic, Atraumatic and Moist Mucous Membranes
Respiratory: Clear to Auscultation
Cardiac: Regular Rhythm and S1/S2; Negative Murmur, Rub or Gallop
GI: Soft, Nontender, Nondistended and Normal Bowel Sounds; Negative Organomegaly
Rectal: Deferred by Provider
Musculoskeletal: No Clubbing, No Cyanosis, No Edema, Edema, Right Lower Extrem (improving ) and Edema, Left Lower Extrem (improving )
Skin: Negative Rash
Neuro: Awake, No Motor Deficits and Nonfocal/Grossly Intact
Psych: Calm
Data Reviewed
-
Total Time Spent with Patient (in minutes): 55
[2024-02-18] MEDS: NOVOLOG FLEXPEN-LOW RESISTANCE 1 UNITS SC ×2 (12:09→16:55)
[2024-02-18 12:29] LABS: Glycohemoglobin (HgbA1c) 6.5 % (4.0-5.6)
--- NOTE | 2024-02-18 14:41 | W.PN.CARDCBS ---
Addendum entered and electronically signed by Rojelio Enirque MD 02/18/24 18:18:
I saw and examined the patient.
The [employer] Worker's note was reviewed and I agree with the note.
Comment: Briefly, 83-year-old man past medical history of heart failure with preserved ejection fraction who is presenting with melena
Cardiology is consulted for evaluation of heart failure given worsening lower extremity edema and elevated proBNP
Agree with ongoing IV diuresis, suspect we can transition to oral Lasix in the next 48 hours
Monitor daily weights and renal function
Currently being worked up for possible GI bleed, patient tells me tentative plan for EGD/colon on Monday 02/19
Original Note:
Today's Communication / Plan
-
Increase KCl
Cont Lasix IV
Cont Toprol XL
Impression / Plan
-
PCP: Dr. Jarquin
Cardiology: Dr. Maureen Dejesus
Impression:
Melena and anemia
Acute on chronic HFpEF
Secondary pulmonary HTN
HTN
DM 2
Hyperlipidemia
Frequent PVCs and NSVT
Low level normal potassium level
Echo 09/02/2022: EF 55 to 60%, moderate concentric LVH, stage II diastolic dysfunction, trace MR
Echo 02/17/2024: EF 55 to 60%, mild concentric LVH, stage II diastolic dysfunction, normal RV size and function, mild MR, mild to moderate TR with PAP 45 to 50 mmHg
Plan:
-Weight is down 4 lbs overnight with Lasix 40 mg IV BID diuresis. Cre is stable at 0.9. Patient was taking Lasix 40 mg PO daily most recently prior to admission.
-Patient was taking HCTZ and Lasix prior to admission for unclear reasons. HCTZ stopped this admission.
-EF stable by echo with stage II diastolic dysfunction
-Cont Toprol XL 150 mg daily.
-Overnight tele reviewed and there was a short run of NSVT. EF preserved. Patient with known frequent PVCs. Patient has previously declined a long-term monitor to assess burden. Cont Toprol XL.
-Potassium has been low normal. Magnesium 1.9. Increase KCl to 20 meq BID. KCl is new this admission.
-GI note reviewed and upper and lower endoscopy planned pending fever work-up. Patient is stable to proceed from a cardiac standpoint. He is breathing room air and is able to lay flat.
HPI: Patient came to [facility] last night with increased SOB and melena, cardiology is consulted for possible acute HF. Patient says that his PCP started him on iron a few weeks ago and his stools started to look black which was new for him. He has a h/o
anemia, but prior to that was not taking an iron supplement. He came to [facility] because he was feeling tired and weak. He has RAMIREZ. He says he has chronic LE edema which he does not think is any worse lately. He takes Lasix 20 mg PO daily and HCTZ 25 mg
daily. At his last office visit 01/14/24 his Lasix was increased to 40 mg daily for 3 -5 days for RAMIREZ and then he was to resume his usual dose. Patient had labs 02/08/24 and his BNP was up so the cardiology office called him to advise that he increase
Lasix back to 40 mg daily again for a few days and we learned that he had inadvertently been taking Lasix 40 mg PO daily since the 01/14/24 office visit, so patient was advised to take Lasix 40 mg AM and 20 mg PM daily for 3 days and then go back to
Lasix 40 mg daily. Patient feels like edema was a bit better with the extra Lasix, but was still tired and so when his PCP repeated labs and he was more anemic he was sent to [facility].
Progress Note - Public Relations Professional
Subjective
Date of Service: February 18, 2024
No palpitations
Objective
Labs:
02/18/24 03:47
02/18/24 03:48
Labs
Hgb 7.7 g/dL (13.0-18.0) L 02/18/24 03:47
Hct 23.9 % (39.0-52.0) L 02/18/24 03:47
Plt Count 235 10^3/uL (130-400) 02/18/24 03:47
APTT 38.3 Sec (23.4-35.0) H 02/16/24 17:45
Sodium 134 mmol/L (135-145) L 02/18/24 03:48
Potassium 3.8 mmol/L (3.5-5.1) 02/18/24 03:48
BUN 24 mg/dl (9-20) H 02/18/24 03:48
Creatinine 0.9 mg/dL (0.7-1.3) 02/18/24 03:48
Glucose 119 mg/dl (70-99) H 02/18/24 03:48
Troponins
02/16/24
21:17
Troponin I 0.015
Vital Signs and I&O:
Vital Signs
Temp Pulse Resp BP Pulse Ox
97.3 F 71 16 151/65 98
02/18/24 14:37 02/18/24 14:37 02/18/24 14:37 02/18/24 14:37 02/18/24 14:37
Vital Signs
Temp Pulse Resp BP Pulse Ox
97.3 F 71 16 151/65 98
02/18/24 14:37 02/18/24 14:37 02/18/24 14:37 02/18/24 14:37 02/18/24 14:37
Intake & Output
02/16/24 02/17/24 02/18/24 02/19/24
06:59 06:59 06:59 06:59
Intake Total 480 / 480 1280 / 1280
Output Total 800 / 800 2125 / 2125
Balance -320 / -320 -845 / -845
Physical Exam
Physical Exam
GEN: AAOx3
HEENT: MMM
LUNGS: No audible wheeze
CV: SR with PVCs on tele
ABD: ND
EXT: +trace B/L LE edema
NEURO: Gross non-focal
SKIN: No rash
[2024-02-18] MEDS: NEURONTIN 100 MG PO ×2 (16:31→21:41)
[2024-02-18 16:39] LABS: Glucose - Point of Care 198 mg/dl (70-99)
--- NOTE | 2024-02-18 17:41 | CM ---
CM met with Seth today and IA completed.
Seth lives alone in a 2 story home with 4 entry steps. He is (I) amb and adls and drives, plans to return home at discharge.
Plan: Discharge to home with no needs.
PCP: Elijah Jarquin
Pharm: [facility] on [address] in [place]
[2024-02-18] MEDS: ULTRAM 50 MG PO (21:41)
[2024-02-18 21:50] LABS: Glucose - Point of Care 184 mg/dl (70-99)
[2024-02-19] VITALS (7 sets, daily range): BP systolic 130–179; BP diastolic 55–89; PULSE 88; O2SAT 94; BMI 25.0
[2024-02-19 07:14] LABS: % Basophils 0.2 % (0-2); % Eosinophils 1.1 % (0-6); % Immature Granulocytes 4.8 % (0-0.5); % Lymphocytes 10.4 % (20.5-51.1); % Monocytes 4.6 % (1.7-9.3); % Neutrophils 78.9 % (42.2-75.2); Absolute Eosinophils 0.1 10^3/uL (0-0.7); Absolute Immature Granulocytes 0.4 10^3/uL (0-0.05); Absolute Lymphocytes 0.9 10^3/uL (1.2-3.4); Absolute Monocytes 0.4 10^3/uL (0.1-0.6); Hematocrit 25.5 % (39.0-52.0); Hemoglobin 8.3 g/dL (13.0-18.0); Mean Corp Hgb Conc. 32.5 g/dL (33.0-37.0); Mean Corpuscular Volume 92.1 fL (80.0-94.0); Mean Platelet Volume 9.6 fL (7.4-10.4); Nucleated Red Blood Cells % 0 % (-); Platelet Count 254 10^3/uL (130-400); Red Blood Cell Count 2.77 10^6/uL (4.70-6.10); Red Cell Dist. Width 13.8 % (11.5-14.5); White Blood Cell Count 8.9 10^3/uL (4.8-10.8)
[2024-02-19] MEDS: NSS (PRESERVATIVE FREE) 10 ML IV ×2 (07:30→21:37)
[2024-02-19] MEDS: VITAMIN D3 (cholecalciferol) 125 MCG PO (07:31)
[2024-02-19] MEDS: NEURONTIN 100 MG PO ×3 (07:31→21:36)
[2024-02-19] MEDS: LASIX 40 MG IV (07:31)
[2024-02-19] MEDS: PROTONIX IV 40 MG IV ×2 (07:31→21:37)
[2024-02-19] MEDS: FEOSOL 325 MG PO (07:31)
[2024-02-19] MEDS: KCL 20 MEQ PO (07:32)
[2024-02-19] MEDS: CARDURA 8 MG PO (07:32)
[2024-02-19] MEDS: THERAGRAN 1 TABLET PO (07:32)
[2024-02-19] MEDS: TOPROL XL 150 MG PO (07:32)
[2024-02-19 07:38] LABS: Blood Urea Nitrogen 25 mg/dl (9-20); Calcium 8.6 mg/dl (8.4-10.2); Carbon Dioxide 29 mmol/L (22-30); Chloride 98 mmol/L (98-107); Estimated Creatinine Clearance 62 ml/min; Glucose 174 mg/dl (70-99); Potassium 4.1 mmol/L (3.5-5.1); Sodium 136 mmol/L (135-145); eGFR > 60.00
[2024-02-19 07:51] LABS: Glucose - Point of Care 160 mg/dl (70-99)
[2024-02-19] MEDS: NOVOLOG FLEXPEN-LOW RESISTANCE 1 UNITS SC ×2 (07:56→17:10)
[2024-02-19] MEDS: PRAVACHOL 10 MG PO (07:57)
[2024-02-19] MEDS: VITAMIN B-12 1000 MCG PO (07:59)
--- NOTE | 2024-02-19 07:59 | W.PN.GI.CBS2 ---
Today's Communication / Plan
-
Please see assessment and plan for details.
Assessment / Plan
-
1. Anemia: With mild chronic anemia with more acute drop, with mixed iron studies, likely some component of GI blood loss with dark stools, though hemoglobin remained stable. His pulmonary status has improved, though still having intermittent
fevers with no obvious source yet. At this point we will tentatively plan best endoscopy tomorrow, and if negative then likely colonoscopy on Friday. Would hate to prep for colonoscopy which could be canceled if having worsening fevers.
Subjective
Subjective
Date of Service: February 19, 2024
Patient feeling okay, though still having fevers at night, up to 100.9 with rigors last night. Culture data negative, chest x-ray with some mild increased pulmonary edema, though no obvious pneumonia. Did have vomiting yesterday which was dark.
Objective
Data Reviewed
Laboratory Data:
Laboratory Results
02/19/24 06:39
02/19/24 06:39
Laboratory Results
APTT 38.3 Sec (23.4-35.0) H 02/16/24 17:45
Magnesium Cancelled 02/18/24 06:00
Total Bilirubin 0.6 mg/dl (0.2-1.3) 02/17/24 06:46
AST 27 U/L (17-59) 02/17/24 06:46
ALT 26 U/L (0-50) 02/17/24 06:46
Alkaline Phosphatase 174 U/L (38-126) H 02/17/24 06:46
Vital Signs and I&O:
Vital Signs
Temp Pulse Resp BP Pulse Ox
98.3 F 90 18 140/80 95
02/19/24 05:57 02/19/24 07:32 02/19/24 03:55 02/19/24 07:32 02/19/24 03:55
I&O
02/18/24 02/19/24 07/01/08
06:59 06:59 06:59
Intake Total 1280 / 1280 720 / 720
Output Total 2125 / 2125 200 / 200
Balance -845 / -845 520 / 520
Physical Exam
Physical Exam
General: NAD
Abdomen: normal bowel sounds, soft, no tenderness, no masses or bruits, no ascites
--- NOTE | 2024-02-19 10:46 | W.PN.CARDCBS ---
Today's Communication / Plan
-
Changed to oral Lasix and sign off
Stable cardiology status for GI procedure without further testing
Impression / Plan
-
PCP: Dr. Jarquin
Cardiology: Dr. Maureen Dejesus
Impression:
Melena and anemia
Acute on chronic HFpEF
Secondary pulmonary HTN
HTN
DM 2
Hyperlipidemia
Frequent PVCs and NSVT
Low level normal potassium level
Echo 09/02/2022: EF 55 to 60%, moderate concentric LVH, stage II diastolic dysfunction, trace MR
Echo 02/17/2024: EF 55 to 60%, mild concentric LVH, stage II diastolic dysfunction, normal RV size and function, mild MR, mild to moderate TR with PAP 45 to 50 mmHg
Plan:
He appears to be euvolemic.
Weight is currently his dry weight at 174 pounds per patient
Will change to oral Lasix
Stable cardiology status for GI procedure without further testing
Overnight tele reviewed on 02/17 and there was a short run of NSVT. EF preserved. Patient with known frequent PVCs. Patient has previously declined a long-term monitor to assess burden. Cont Toprol XL.
Stable from cardiology viewpoint
Will sign off, call with questions
HPI: Patient came to [facility] last night with increased SOB and melena, cardiology is consulted for possible acute HF. Patient says that his PCP started him on iron a few weeks ago and his stools started to look black which was new for him. He has a h/o
anemia, but prior to that was not taking an iron supplement. He came to [facility] because he was feeling tired and weak. He has RAMIREZ. He says he has chronic LE edema which he does not think is any worse lately. He takes Lasix 20 mg PO daily and HCTZ 25 mg
daily. At his last office visit 01/14/24 his Lasix was increased to 40 mg daily for 3 -5 days for RAMIREZ and then he was to resume his usual dose. Patient had labs 02/08/24 and his BNP was up so the cardiology office called him to advise that he increase
Lasix back to 40 mg daily again for a few days and we learned that he had inadvertently been taking Lasix 40 mg PO daily since the 01/14/24 office visit, so patient was advised to take Lasix 40 mg AM and 20 mg PM daily for 3 days and then go back to
Lasix 40 mg daily. Patient feels like edema was a bit better with the extra Lasix, but was still tired and so when his PCP repeated labs and he was more anemic he was sent to [facility].
Progress Note - Service Observer Chief
Subjective
Date of Service: February 19, 2024
No complaints.
Objective
Labs:
02/19/24 06:39
02/19/24 06:39
Labs
Hgb 8.3 g/dL (13.0-18.0) L 02/19/24 06:39
Hct 25.5 % (39.0-52.0) L 02/19/24 06:39
Plt Count 254 10^3/uL (130-400) 02/19/24 06:39
APTT 38.3 Sec (23.4-35.0) H 02/16/24 17:45
Sodium 136 mmol/L (135-145) 02/19/24 06:39
Potassium 4.1 mmol/L (3.5-5.1) 02/19/24 06:39
BUN 25 mg/dl (9-20) H 02/19/24 06:39
Creatinine 0.9 mg/dL (0.7-1.3) 02/19/24 06:39
Glucose 174 mg/dl (70-99) H 02/19/24 06:39
Troponins
02/16/24
21:17
Troponin I 0.015
Vital Signs and I&O:
Vital Signs
Temp Pulse Resp BP Pulse Ox
99.7 F 90 18 140/80 95
02/19/24 07:16 02/19/24 07:32 02/19/24 07:16 02/19/24 07:32 02/19/24 10:18
Vital Signs
Temp Pulse Resp BP Pulse Ox
99.7 F 90 18 140/80 95
02/19/24 07:16 02/19/24 07:32 02/19/24 07:16 02/19/24 07:32 02/19/24 10:18
Intake & Output
02/17/24 02/18/24 02/19/24 02/20/24
06:59 06:59 06:59 06:59
Intake Total 480 / 480 1280 / 1280 720 / 720
Output Total 800 / 800 2125 / 2125 200 / 200
Balance -320 / -320 -845 / -845 520 / 520
Physical Exam
Physical Exam
General: Well developed, well nourished in NAD.
Neck: Supple, no JVD, HJR, carotids +2 B/L, no bruits bilaterally.
Heart: Non displaced PMI, RRR, no murmurs, No S3, S4, no rubs.
Lungs: Clear to auscultation bilaterally, no wheeze, rhonchi, rubs bilaterally,
normal expiratory phase.
Extremities: No clubbing, cyanosis or edema bilaterally.
Neuro: Grossly nonfocal, awake, alert and oriented x3.
--- NOTE | 2024-02-19 11:59 | W.PN.HOSP.TC ---
Today's Communication/Plan
-
Venous Doppler lower extremity
P.o. Lasix
Decrease KCl
EGD tomorrow
Assessment / Plan
Assessment / Plan
# Symptomatic, progressive normocytic anemia possibly chronic upper GI bleeding
-Hemoglobin 8.3 Transfuse for Hgb <7.
-Hemoccult negative, black stools likely secondary to iron supplement, although BUN elevated
-B12 and folate wnl. On po iron supplements.
-Continue iron supplement
-IV Protonix 40 twice daily
-Hold aspirin
-Plan for tentative EGD tomorrow with colon on Friday
-GI consulted
# Mild acute on chronic HFpEF exacerbation
-Chest x-ray shows mild cardiomegaly with suspected mild interstitial cardiogenic pulm edema
-Cardiac BNP 5000
-Check I's and O's, daily weights
-ECHO with Normal left ventricular systolic function. Normal regional wall motion. Mild concentric left ventricular hypertrophy. Left ventricular ejection fraction is 55-60% by volumetric assessment. Stage II diastolic dysfunction suggestive of
abnormal relaxation and increased filling pressures. Mild mitral regurgitation. Mild to moderate tricuspid regurgitation. Estimated pulmonary artery. Trivial pericardial effusion.
-IV lasix 40mg BID and now transition to p.o. 40 mg Lasix.
-Cards recs
#Fever's unclear etiology
CXR with pulm edema. No productive cough.
COVID negative
Influenza negative
blood culture in lab remains negative so far
no urinary symptoms UA pending
LE edema check venous Doppler to rule out thrombosis as cause of fever
If spikes fever may need infectious disease input
Type 2 diabetes
-Hold metformin
-Check a1c at 6.5, accuchecks.
Neuropathic pain
-start low dose gabapentin 100mg TID
Essential hypertension
-DC HCTZ and on p.o. Lasix continued
-Continue metoprolol
Osteoarthritis
-Continue tramadol
GERD
-Continue Apriso
Prostate cancer
-Continue doxazosin
History of prior neurogenic bladder
DNR/DNI
DVT prophylaxis�SCDs
Anticipated Discharge: > 48 hours
Subjective/Interval History
-
Date of Service: February 19, 2024
Spiked fever overnight
Objective Data
-
Labs:
Laboratory Results
02/19/24
06:39
WBC 8.9
Hgb 8.3 L
Hct 25.5 L
Plt Count 254
Sodium 136
Potassium 4.1
Chloride 98
Carbon Dioxide 29
BUN 25 H
Creatinine 0.9
Glucose 174 H
Calcium 8.6
Vital Signs:
Vital Signs
Temp Pulse Resp BP Pulse Ox
98.8 F 81 18 132/55 97
02/19/24 11:39 02/19/24 11:39 02/19/24 11:39 02/19/24 11:39 02/19/24 11:39
I&O
02/18/24 02/19/24 02/20/24
06:59 06:59 06:59
Intake Total 1280 / 1280 720 / 720
Output Total 2125 / 2125 200 / 200
Balance -845 / -845 520 / 520
Physical Exam
-
General: Well Developed and No Apparent Distress
HEENT: Normocephalic, Atraumatic and Moist Mucous Membranes
Respiratory: Clear to Auscultation
Cardiac: Regular Rhythm and S1/S2; Negative Murmur, Rub or Gallop
GI: Soft, Nontender, Nondistended and Normal Bowel Sounds; Negative Organomegaly
Rectal: Deferred by Provider
Musculoskeletal: No Clubbing, No Cyanosis, No Edema, Edema, Right Lower Extrem and Edema, Left Lower Extrem
Skin: Negative Rash
Neuro: Awake, No Motor Deficits and Nonfocal/Grossly Intact
Psych: Calm
Data Reviewed
-
Total Time Spent with Patient (in minutes): 55
[2024-02-19 12:05] LABS: Glucose - Point of Care 264 mg/dl (70-99)
[2024-02-19] MEDS: NOVOLOG FLEXPEN-LOW RESISTANCE 3 UNITS SC (12:16)
[2024-02-19 14:37] LABS: Urine Albumin Negative (Neg - Trace); Urine Bilirubin Negative (Negative); Urine Character Clear (Clear); Urine Color Yellow; Urine Glucose Negative (Negative); Urine Ketone Negative (Negative); Urine Leukocyte Negative (Negative); Urine Nitrite Negative (Negative); Urine Occult Blood Negative (Negative); Urine Urobilinogen Negative (Neg - 1+); Urine pH 6.5 (5.0-9.0)
[2024-02-19 17:09] LABS: Glucose - Point of Care 156 mg/dl (70-99)
[2024-02-19] MEDS: OSCAL CAL 500 500 MG PO (17:13)
[2024-02-19] MEDS: TYLENOL 650 MG PO (17:43)
[2024-02-19 21:23] LABS: Glucose - Point of Care 216 mg/dl (70-99)
[2024-02-19] MEDS: ULTRAM 50 MG PO (21:36)
[2024-02-20] VITALS (8 sets, daily range): BP systolic 16–186; BP diastolic 54–82; BMI 24.9
[2024-02-20] MEDS: TYLENOL 650 MG PO ×2 (01:53→20:15)
[2024-02-20 07:58] LABS: % Basophils 0.3 % (0-2); % Eosinophils 1.5 % (0-6); % Immature Granulocytes 5.6 % (0-0.5); % Lymphocytes 10.4 % (20.5-51.1); % Neutrophils 76.2 % (42.2-75.2); Absolute Eosinophils 0.1 10^3/uL (0-0.7); Absolute Immature Granulocytes 0.5 10^3/uL (0-0.05); Absolute Lymphocytes 0.9 10^3/uL (1.2-3.4); Absolute Monocytes 0.5 10^3/uL (0.1-0.6); Absolute Neutrophils 6.6 10^3/uL (1.4-6.5); Hematocrit 25.4 % (39.0-52.0); Hemoglobin 8.1 g/dL (13.0-18.0); Mean Corp Hgb Conc. 31.9 g/dL (33.0-37.0); Mean Corpuscular Hgb 30.5 pg (27.0-31.0); Mean Corpuscular Volume 95.5 fL (80.0-94.0); Mean Platelet Volume 9.8 fL (7.4-10.4); Nucleated Red Blood Cells % 0 % (-); Platelet Count 210 10^3/uL (130-400); Red Blood Cell Count 2.66 10^6/uL (4.70-6.10); Red Cell Dist. Width 14.1 % (11.5-14.5); White Blood Cell Count 8.6 10^3/uL (4.8-10.8)
[2024-02-20 08:07] LABS: Blood Urea Nitrogen 22 mg/dl (9-20); Calcium 8.3 mg/dl (8.4-10.2); Carbon Dioxide 28 mmol/L (22-30); Chloride 100 mmol/L (98-107); Estimated Creatinine Clearance 62 ml/min; Glucose 110 mg/dl (70-99); Potassium 4.4 mmol/L (3.5-5.1); Sodium 134 mmol/L (135-145); eGFR > 60.00
[2024-02-20] MEDS: NSS (PRESERVATIVE FREE) 10 ML IV ×2 (08:18→20:15)
[2024-02-20] MEDS: PROTONIX IV 40 MG IV ×2 (08:18→20:16)
[2024-02-20] MEDS: LASIX 40 MG PO (08:19)
[2024-02-20] MEDS: VITAMIN B-12 1000 MCG PO (08:19)
[2024-02-20] MEDS: KCL 20 MEQ PO (08:19)
[2024-02-20] MEDS: PRAVACHOL 10 MG PO (08:19)
[2024-02-20] MEDS: FEOSOL 325 MG PO (08:20)
[2024-02-20] MEDS: TOPROL XL 150 MG PO (08:20)
[2024-02-20] MEDS: CARDURA 8 MG PO (08:21)
[2024-02-20] MEDS: VITAMIN D3 (cholecalciferol) 125 MCG PO (08:21)
[2024-02-20] MEDS: THERAGRAN 1 TABLET PO (08:21)
[2024-02-20] MEDS: NEURONTIN 100 MG PO ×3 (08:21→21:13)
[2024-02-20] MEDS: NOVOLOG FLEXPEN-LOW RESISTANCE SC (08:49)
[2024-02-20 08:50] LABS: Glucose - Point of Care 135 mg/dl (70-99)
[2024-02-20] MEDS: TYLENOL 1000 MG PO (09:51)
--- NOTE | 2024-02-20 11:38 | W.PN.HOSP.TC ---
Today's Communication/Plan
-
Colonoscopy tomm
Continue with p.o. Lasix
trend cbc
Assessment / Plan
Assessment / Plan
# Symptomatic, progressive normocytic anemia possibly chronic upper GI bleeding
-Hemoglobin 8.3 Transfuse for Hgb <7.
-Hemoccult negative, black stools likely secondary to iron supplement, although BUN elevated
-B12 and folate wnl. On po iron supplements.
-Continue iron supplement
-IV Protonix 40 twice daily
-Hold aspirin
-EGD today-no gross lesion noted in the entire examined stomach. 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
-Clears today plan for colonoscopy tomorrow
-GI consulted
# Mild acute on chronic HFpEF exacerbation
-Chest x-ray shows mild cardiomegaly with suspected mild interstitial cardiogenic pulm edema
-Cardiac BNP 5000
-Check I's and O's, daily weights
-ECHO with Normal left ventricular systolic function. Normal regional wall motion. Mild concentric left ventricular hypertrophy. Left ventricular ejection fraction is 55-60% by volumetric assessment. Stage II diastolic dysfunction suggestive of
abnormal relaxation and increased filling pressures. Mild mitral regurgitation. Mild to moderate tricuspid regurgitation. Estimated pulmonary artery. Trivial pericardial effusion.
-IV lasix 40mg BID and now transition to p.o. 40 mg Lasix.
-Cards recs
#Fever's unclear etiology
CXR with pulm edema. No productive cough.
COVID negative
Influenza negative
blood culture in lab remains negative so far
no urinary symptoms UA negative
LE edema check venous Doppler to rule out thrombosis as cause of fever
Remains afebrile
Type 2 diabetes
-Hold metformin
-Check a1c at 6.5, accuchecks.
Neuropathic pain
-start low dose gabapentin 100mg TID
Essential hypertension
-DC HCTZ and on p.o. Lasix continued
-Continue metoprolol
Osteoarthritis
-Continue tramadol
GERD
-Continue Apriso
Prostate cancer
-Continue doxazosin
History of prior neurogenic bladder
DNR/DNI
DVT prophylaxis�SCDs
Anticipated Discharge: 24 - 48 hours
Subjective/Interval History
-
Date of Service: February 20, 2024
States of left arm soreness
Objective Data
-
Labs:
Laboratory Results
02/20/24
07:08
WBC 8.6
Hgb 8.1 L
Hct 25.4 L
Plt Count 210
Sodium 134 L
Potassium 4.4
Chloride 100
Carbon Dioxide 28
BUN 22 H
Creatinine 0.9
Glucose 110 H
Calcium 8.3 L
Vital Signs:
Vital Signs
Temp Pulse Resp BP Pulse Ox
98.1 F 90 20 142/84 97
02/20/24 11:31 02/20/24 11:31 02/20/24 11:31 02/20/24 11:31 02/20/24 11:31
I&O
02/19/24 02/20/24 02/21/24
06:59 06:59 06:59
Intake Total 720 / 720 1080 / 1080
Output Total 200 / 200 1500 / 1500
Balance 520 / 520 -420 / -420
[2024-02-20 12:18] LABS: Glucose - Point of Care 139 mg/dl (70-99)
--- NOTE | 2024-02-20 14:16 | PTCARENOTE ---
Patient had EGD today. Tolerated procedure well. Reviewed clear liquid diet for today, NPO after midnight, and bowel prep for colonoscopy. Patient verbalizes understanding of teaching.
[2024-02-20] MEDS: GAVILAX 238 GM PO (15:10)
[2024-02-20 17:13] LABS: Glucose - Point of Care 161 mg/dl (70-99)
[2024-02-20] MEDS: NOVOLOG FLEXPEN-LOW RESISTANCE 1 UNITS SC (17:18)
[2024-02-20] MEDS: OSCAL CAL 500 500 MG PO (17:18)
--- NOTE | 2024-02-20 18:50 | PTCARENOTE ---
Patient completed bowel prep. Patient having loose stools. For colonoscopy tomorrow. Bed alarm placed on bed and reviewed with patient to ring for assistance. Patient using quad cane to ambulate. Encouragement provided to use BSC rather than
bathroom if he has urgency.
[2024-02-20 21:06] LABS: Glucose - Point of Care 140 mg/dl (70-99)
[2024-02-20] MEDS: ULTRAM 50 MG PO (21:16)
[2024-02-21] VITALS (8 sets, daily range): BP systolic 129–160; BP diastolic 58–76; BMI 25.1
[2024-02-21] MEDS: TYLENOL 650 MG PO ×3 (02:15→20:31)
[2024-02-21] MEDS: ULTRAM 50 MG PO ×3 (04:35→22:41)
[2024-02-21] MEDS: GAVILAX 238 GM PO (06:25)
[2024-02-21] MEDS: NOVOLOG FLEXPEN-LOW RESISTANCE SC ×2 (06:29→11:57)
[2024-02-21 07:36] LABS: Glucose - Point of Care 117 mg/dl (70-99)
[2024-02-21] MEDS: PRAVACHOL 10 MG PO (08:05)
[2024-02-21] MEDS: KCL 20 MEQ PO (08:05)
[2024-02-21] MEDS: CARDURA 8 MG PO (08:06)
[2024-02-21] MEDS: THERAGRAN 1 TABLET PO (08:06)
[2024-02-21] MEDS: VITAMIN D3 (cholecalciferol) 125 MCG PO (08:06)
[2024-02-21] MEDS: NEURONTIN 100 MG PO ×3 (08:06→22:41)
[2024-02-21] MEDS: TOPROL XL 150 MG PO (08:06)
[2024-02-21] MEDS: VITAMIN B-12 1000 MCG PO (08:06)
[2024-02-21] MEDS: FLUSH (NSS) 1 FLUSH IV (08:07)
[2024-02-21] MEDS: LASIX 40 MG PO (08:07)
[2024-02-21] MEDS: NSS (PRESERVATIVE FREE) 10 ML IV ×3 (08:07→22:43)
[2024-02-21] MEDS: FEOSOL 325 MG PO (08:07)
[2024-02-21] MEDS: PROTONIX IV 40 MG IV ×3 (08:07→22:43)
[2024-02-21 08:20] LABS: % Basophils 0.4 % (0-2); % Eosinophils 1.5 % (0-6); % Immature Granulocytes 6.5 % (0-0.5); % Lymphocytes 11.2 % (20.5-51.1); % Monocytes 5.8 % (1.7-9.3); % Neutrophils 74.6 % (42.2-75.2); Absolute Eosinophils 0.1 10^3/uL (0-0.7); Absolute Immature Granulocytes 0.5 10^3/uL (0-0.05); Absolute Lymphocytes 0.8 10^3/uL (1.2-3.4); Absolute Monocytes 0.4 10^3/uL (0.1-0.6); Absolute Neutrophils 5.4 10^3/uL (1.4-6.5); Hematocrit 24.8 % (39.0-52.0); Mean Corp Hgb Conc. 32.3 g/dL (33.0-37.0); Mean Corpuscular Volume 92.9 fL (80.0-94.0); Mean Platelet Volume 10.1 fL (7.4-10.4); Nucleated Red Blood Cells % 0 % (-); Platelet Count 226 10^3/uL (130-400); Red Blood Cell Count 2.67 10^6/uL (4.70-6.10); Red Cell Dist. Width 13.8 % (11.5-14.5); White Blood Cell Count 7.2 10^3/uL (4.8-10.8)
[2024-02-21 08:30] LABS: Blood Urea Nitrogen 20 mg/dl (9-20); Calcium 8.8 mg/dl (8.4-10.2); Carbon Dioxide 27 mmol/L (22-30); Chloride 97 mmol/L (98-107); Estimated Creatinine Clearance 62 ml/min; Glucose 102 mg/dl (70-99); Potassium 4.4 mmol/L (3.5-5.1); Sodium 133 mmol/L (135-145); eGFR > 60.00
--- NOTE | 2024-02-21 10:22 | W.PN.HOSP.TC ---
Today's Communication/Plan
-
await C-scope
trend hgb
po lasix
manoj wrap LE
Assessment / Plan
Assessment / Plan
# Symptomatic, progressive normocytic anemia possibly chronic upper GI bleeding
-Hemoglobin 8 Transfuse for Hgb <7.
-Hemoccult negative, black stools likely secondary to iron supplement, although BUN elevated
-B12 and folate wnl. On po iron supplements.
-Continue iron supplement
-IV Protonix 40 twice daily
-Hold aspirin
-EGD today-no gross lesion noted in the entire examined stomach. 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
-Colonoscopy today
-GI consulted
# Mild acute on chronic HFpEF exacerbation
-Chest x-ray shows mild cardiomegaly with suspected mild interstitial cardiogenic pulm edema
-Cardiac BNP 5000
-Check I's and O's, daily weights
-ECHO with Normal left ventricular systolic function. Normal regional wall motion. Mild concentric left ventricular hypertrophy. Left ventricular ejection fraction is 55-60% by volumetric assessment. Stage II diastolic dysfunction suggestive of
abnormal relaxation and increased filling pressures. Mild mitral regurgitation. Mild to moderate tricuspid regurgitation. Estimated pulmonary artery. Trivial pericardial effusion.
-IV lasix 40mg BID and now transition to p.o. 40 mg Lasix.
-Cards recs
#Fever's unclear etiology
CXR with pulm edema. No productive cough.
COVID negative
Influenza negative
blood culture in lab remains negative so far
no urinary symptoms UA negative
LE edema check venous Doppler negative for dvt
Remains afebrile
Type 2 diabetes
-Hold metformin
-Check a1c at 6.5, accuchecks.
Neuropathic pain
-start low dose gabapentin 100mg TID
Essential hypertension
-DC HCTZ and on p.o. Lasix continued
-Continue metoprolol
Osteoarthritis
-Continue tramadol
GERD
-Continue Apriso
Prostate cancer
-Continue doxazosin
History of prior neurogenic bladder
DNR/DNI
DVT prophylaxis�SCDs
Anticipated Discharge: Within 24 hours
Subjective/Interval History
-
Date of Service: February 21, 2024
awaiting for c-scope
states finished prep
intermittent neuropathic pain
Objective Data
-
Labs:
Laboratory Results
02/21/24
06:41
WBC 7.2
Hgb 8.0 L
Hct 24.8 L
Plt Count 226
Sodium 133 L
Potassium 4.4
Chloride 97 L
Carbon Dioxide 27
BUN 20
Creatinine 0.9
Glucose 102 H
Calcium 8.8
Vital Signs:
Vital Signs
Temp Pulse Resp BP Pulse Ox
98.1 F 93 18 159/76 98
02/21/24 07:35 02/21/24 08:07 02/21/24 07:35 02/21/24 08:07 02/21/24 08:04
I&O
02/20/24 02/21/24 02/22/24
06:59 06:59 06:59
Intake Total 1080 / 1080 3360 / 3360
Output Total 1500 / 1500 500 / 500
Balance -420 / -420 2860 / 2860
Physical Exam
-
General: Well Developed and No Apparent Distress
HEENT: Normocephalic, Atraumatic and Moist Mucous Membranes
Respiratory: Clear to Auscultation
Cardiac: Regular Rhythm and S1/S2; Negative Murmur, Rub or Gallop
GI: Soft, Nontender, Nondistended and Normal Bowel Sounds; Negative Organomegaly
Rectal: Deferred by Provider
Musculoskeletal: No Clubbing, No Cyanosis, No Edema, Edema, Right Lower Extrem and Edema, Left Lower Extrem
Skin: Negative Rash
Neuro: Awake, No Motor Deficits and Nonfocal/Grossly Intact
Psych: Calm
[2024-02-21 11:52] LABS: Glucose - Point of Care 125 mg/dl (70-99)
--- NOTE | 2024-02-21 14:27 | PTCARENOTE ---
Pt returned from GI lab via stretcher, accompanied by GI lab staff x2. Pt AAO x3, ABDULLAHI; transferred to bed with assist x2/quad cane. VSS. Telemetry:NSR. On room air- pulse ox 96%, no SOB noted. Abd large, soft BS (+); decreased, to start low
residue diet. Resting in bed at present, no c/o. Will continue to monitor.
--- NOTE | 2024-02-21 15:00 | CHAP ---
Mr. Walker had requested a Bible, which was brought to his room while he was out for a procedure. [facility] [place] [facility] will be advised of his desire to receive Communion tomorrow, per his request.
--- NOTE | 2024-02-21 16:18 | PTCARENOTE ---
Pt resting quietly since return from GI lab, c/o frontal headache. ABDULLAHI well, OOB to BR with quad cane; calls for assistance as needed. VSS. telemetry:NSR with PVC's/PAC's. On room air- pulse ox 97%, no c/o SOB. Suki low reside diet. Voiding in
BR; non-compliant with monitoring output. Resting in bed at present. Will continue to monitor.
[2024-02-21 16:40] LABS: Glucose - Point of Care 244 mg/dl (70-99)
[2024-02-21] MEDS: OSCAL CAL 500 500 MG PO (17:28)
[2024-02-21] MEDS: NOVOLOG FLEXPEN-LOW RESISTANCE 2 UNITS SC (18:37)
[2024-02-21 23:53] LABS: Glucose - Point of Care 143 mg/dl (70-99)
[2024-02-22] VITALS (11 sets, daily range): BP systolic 114–186; BP diastolic 49–86; BMI 25.1
--- NOTE | 2024-02-22 01:30 | PTCARENOTE ---
Pt with episode of tachycardia HR 150s- not sustaining. Awoke pt from sleep, denies chest pain, denies dizziness. BP 152/76 HR 96. Pt noted with temp 99.8 at 2338- rechecked 0133 temp 99- pt diaphoretic, stating 'I felt like I had a fever' .
Blood sugar at 2352 143. Will continue to monitor.
[2024-02-22] MEDS: ULTRAM 50 MG PO ×2 (04:55→21:19)
[2024-02-22] MEDS: TYLENOL 650 MG PO ×3 (06:06→20:44)
--- NOTE | 2024-02-22 06:21 | PTCARENOTE ---
Addendum entered by Dilcia Ha 02/22/24 07:34:
Pt sent for CT head.
Original Note:
Pt with R eye pain/pressure throughout the night, mild redness to eye, worse when he is moving. Medicated with ultram 50 mg at 0455 for 8/10 R eye pain, pt continues with pain /10- given PO tylenol. Prior to giving tylenol checked pts temp 100.8
oral. 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
[2024-02-22 07:21] LABS: Blood Urea Nitrogen 23 mg/dl (9-20); Calcium 8.6 mg/dl (8.4-10.2); Carbon Dioxide 27 mmol/L (22-30); Chloride 99 mmol/L (98-107); Estimated Creatinine Clearance 56 ml/min; Glucose 119 mg/dl (70-99); Potassium 4.6 mmol/L (3.5-5.1); Sodium 133 mmol/L (135-145); eGFR > 60.00
[2024-02-22 07:27] LABS: Magnesium 1.5 mg/dl (1.6-2.3)
[2024-02-22 08:01] LABS: Glucose - Point of Care 159 mg/dl (70-99)
[2024-02-22] MEDS: TOPROL XL 150 MG PO (09:00)
[2024-02-22] MEDS: VITAMIN D3 (cholecalciferol) 125 MCG PO (09:01)
[2024-02-22] MEDS: CARDURA 8 MG PO (09:01)
[2024-02-22] MEDS: PRAVACHOL 10 MG PO (09:01)
[2024-02-22] MEDS: VITAMIN B-12 1000 MCG PO (09:01)
[2024-02-22] MEDS: KCL 20 MEQ PO (09:02)
[2024-02-22] MEDS: FEOSOL 325 MG PO (09:02)
[2024-02-22] MEDS: THERAGRAN 1 TABLET PO (09:02)
[2024-02-22] MEDS: NEURONTIN 100 MG PO ×3 (09:02→21:19)
[2024-02-22] MEDS: LASIX 40 MG PO (09:02)
[2024-02-22] MEDS: NOVOLOG FLEXPEN-LOW RESISTANCE 1 UNITS SC ×2 (09:04→12:27)
[2024-02-22] MEDS: PROTONIX IV 40 MG IV ×2 (09:06→20:24)
[2024-02-22] MEDS: NSS (PRESERVATIVE FREE) 10 ML IV ×2 (09:06→20:24)
[2024-02-22] MEDS: MAGNESIUM SULFATE 100 IV (10:05)
[2024-02-22 10:14] LABS: Procalcitonin 0.21 ng/ml (0.0-0.25)
--- NOTE | 2024-02-22 11:23 | W.PN.HOSP.TC ---
Today's Communication/Plan
-
MRI pending
Ophthalmology eval
appreciate ID recs
Continue p.o. Lasix
Replete mag
Assessment / Plan
Assessment / Plan
#Right ophthalmoplegia likely 2/2 optic neuritis inflammatory versus infection
-CT There is a small amount of inflammatory stranding in the right orbit and there is increased attenuation along the periphery of the right optic nerve as compared with the left (image #13 coronal series). Right optic nerve minimally larger as
compared with the left.
-Will ask ID to r/o infectious process as with intermittent fevers
-No prior history of autoimmune disease
-Discussed with radiology and we will order MRI of the orbit/face and neck with and without to assess nerve optic
-Ophthalmology consultation placed-await further recommendation. May require IV steroids
-Symptoms started postprocedure and suspecting possibility of corneal abrasion
# Normocytic anemia
-Hemoglobin 8 Transfuse for Hgb <7.
-Hemoccult negative, black stools likely secondary to iron supplement, although BUN elevated
-B12 and folate wnl. On po iron supplements.
-Continue iron supplement
-IV Protonix 40 twice daily
-Hold aspirin
-EGD today-no gross lesion noted in the entire examined stomach. 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
-Colonoscopy 7/6-4 mm polyp was found to transverse colon. Polyp was sessile. Resected. Diverticulosis. No ibuprofen, naproxen or other NSAIDs today for 5 days after polyp removal. Repeat study in 5 years with outpatient capsule small bowel
study
-GI consulted
# Mild acute on chronic HFpEF exacerbation
-Chest x-ray shows mild cardiomegaly with suspected mild interstitial cardiogenic pulm edema
-Cardiac BNP 5000
-Check I's and O's, daily weights
-ECHO with Normal left ventricular systolic function. Normal regional wall motion. Mild concentric left ventricular hypertrophy. Left ventricular ejection fraction is 55-60% by volumetric assessment. Stage II diastolic dysfunction suggestive of
abnormal relaxation and increased filling pressures. Mild mitral regurgitation. Mild to moderate tricuspid regurgitation. Estimated pulmonary artery. Trivial pericardial effusion.
-IV lasix 40mg BID and now transition to p.o. 40 mg Lasix.
-Cards recs
#Fever's unclear etiology
CXR with pulm edema. No productive cough.
COVID negative
Influenza negative
blood culture in lab remains negative so far
no urinary symptoms UA negative
LE edema check venous Doppler negative for dvt
Further ID recs
Type 2 diabetes
-Hold metformin
-Check a1c at 6.5, accuchecks.
Neuropathic pain
-start low dose gabapentin 100mg TID
Essential hypertension
-DC HCTZ and on p.o. Lasix continued
-Continue metoprolol
Osteoarthritis
-Continue tramadol
GERD
-Continue Apriso
Prostate cancer
-Continue doxazosin
Hypomagnesemia
Replete and monitor
History of prior neurogenic bladder
DNR/DNI
DVT prophylaxis�SCDs
Anticipated Discharge: > 48 hours
Subjective/Interval History
-
Date of Service: February 22, 2024
Patient underwent colonoscopy yesterday
Overnight patient with headache and bright IV pain with increased tearing
This morning patient states of pain with eye movement which occurred suddenly yesterday/overnight
Denies any prior episode of similar situation
States he was seen by churn operator 3 weeks ago
Denies any prior history of glaucoma or retinal disease
Objective Data
-
Labs:
Laboratory Results
02/22/24
06:06
Sodium 133 L
Potassium 4.6
Chloride 99
Carbon Dioxide 27
BUN 23 H
Creatinine 1.0
Glucose 119 H
Calcium 8.6
Vital Signs:
Vital Signs
Temp Pulse Resp BP Pulse Ox
98.8 F 88 20 133/67 94
02/22/24 07:15 02/22/24 09:00 02/22/24 07:15 02/22/24 09:00 02/22/24 07:15
I&O
02/21/24 02/22/24 02/23/24
06:59 06:59 06:59
Intake Total 3360 / 3360 1080 / 1080
Output Total 500 / 500
Balance 2860 / 2860 1080 / 1080
Physical Exam
-
General: Well Developed and No Apparent Distress
HEENT: Normocephalic, Atraumatic, Moist Mucous Membranes and PERRLA (Right eye with mild increase pink conjunctiva with tearing. No diffuse erythema noted. No vesicles noted.)
Respiratory: Clear to Auscultation
Cardiac: Regular Rhythm and S1/S2; Negative Murmur, Rub or Gallop
GI: Soft, Nontender, Nondistended and Normal Bowel Sounds; Negative Organomegaly
Rectal: Deferred by Provider
Musculoskeletal: No Clubbing, No Cyanosis, No Edema, Edema, Right Lower Extrem and Edema, Left Lower Extrem
Skin: Negative Rash
Neuro: Awake, Alert, Oriented, No Motor Deficits and Nonfocal/Grossly Intact; Negative Slurred Speech or Facial Droop
Psych: Calm
Data Reviewed
-
Total Time Spent with Patient (in minutes): 56
[2024-02-22 12:03] LABS: Glucose - Point of Care 197 mg/dl (70-99)
[2024-02-22 12:15] LABS: Erythrocyte Sed Rate 87 mm/hour (0-20)
--- NOTE | 2024-02-22 12:16 | CON.ID ---
Addendum entered and electronically signed by Celi Hayward MD 02/22/24 12:59:
additionally: no history of exposure to active pulmonary TB. No significant time around incarcerated persons or unhoused persons. Has never lived abroad.
1 lifetime sexual partner - his . Never had syphilis.
No exposure to cats.
Original Note:
Consultation
-
Date/Time Consultation Requested: 02/22/24 11:20
Date/Time Consultation Performed: 02/22/24 12:17
Requesting Provider: Dr Pappas
Performing Provider: Dr Hayward
Reason for Consultation: suspected optic neuritis - querry VZV
Chief Complaint / Past History
Chief Complaint
fatigue
History of Present Illness
Mr Walker is an 83 adam old male with history of CHF, neurogenic bladder, prostate cancer, DM2 who presented here for fatigue, weakness, black tarry stools on 02/15 about 1 week ago. At that time denying shortness of breath, palpiations, chest pain.
We recently started on iron supplement for anemia. No NSAIDs. Remote colonoscopy.
Since arrival here he was initially afebrile, On 02/17 developed fevers to 100.9 that spontaneously resolved, then again with a fever to 100.8 today, BP stable, ESR 87, crp 151, wbc has been normal throughout this hospitalization - currently 7.2, hgb
8, plt 226, there has been a L shift from arrival until yesterday when it spontaneously resolved, cr 1.0, a1c 6.5, lactic acid 0.7, t bili 0.6, ast 27, alt 26, alk phos 171, covid ag neg, developed headache, new right eye pain on 02/20 after the
colonoscopy, mildly swollen eye, tearing. No rash or redness around the eye. A CT head without IV contrast was done suggestive of possible right optic neuritis - with 'small amount of inflammatory stranding in the right orbit and there is increased
attenuation along the periphery of the right optic nerve as compared with the left (image #13 coronal series). Right optic nerve minimally larger as compared with the left.' also note 'Patient is post prior resection of ethmoid air cells and
bilateral maxillary antrostomy' periph vas us: no DVT. He was taken for colonooscopy 02/20: notable for a polyp, diverticulosis, angioectasias.
Past History
Additional Past Medical History:
diabetes, hypertension, osteoarthritis, GERD, prostate cancer, prior neurogenic bladder, diverticulosis, internal hemorrhoids
Additional Past Surgical History:
resection of ethmoid air cells and bilateral maxillary antrostomy
Allergy History:
oxycodone [Oxycodone] Allergy (Verified 02/16/24 17:29)
Itching
Medications Reviewed: Yes
Social History
Tobacco: Non-Smoker
Alcohol: Occasional
Drug: None
Family History
Family History: Not Pertinent
Review of Systems
Review of Systems
General: Fever
All systems: All other systems were reviewed and were negative
Vital Signs
Temp Pulse Resp BP Pulse Ox
97.6 F 81 16 137/59 95
02/22/24 11:35 02/22/24 11:35 02/22/24 11:35 02/22/24 11:35 02/22/24 11:35
Physical Exam
Physical Exam
Constitutional: No Acute Distress
Eyes: Other (right eye mildly swollen,equal pupils, no rash)
Cardiovascular: Regular Rate and S1/S2; Negative Murmur or Rub
Pulmonary: Clear and Symmetric; Negative Wheezes, Rales or Rhonchi
Gastrointestinal: Soft, Non Tender, Non Distended and Normal Bowel Sounds
Skin: Warm and Dry; Negative Rash or Jaundice
Lab / Diagnostic Study Results
02/21/24 06:41
02/22/24 06:06
Abs Immat Gran (auto) 0.5 10^3/uL (0-0.05) H 02/21/24 06:41
Absolute Neuts (auto) 5.4 10^3/uL (1.4-6.5) 02/21/24 06:41
Absolute Lymphs (auto) 0.8 10^3/uL (1.2-3.4) L 02/21/24 06:41
Absolute Monos (auto) 0.4 10^3/uL (0.1-0.6) 02/21/24 06:41
Absolute Basos (auto) 0.0 10^3/uL (0-0.2) 02/21/24 06:41
Immature Gran % 6.5 % (0-0.5) H 02/21/24 06:41
Neutrophils % 74.6 % (42.2-75.2) 02/21/24 06:41
Lymphocytes % 11.2 % (20.5-51.1) L 02/21/24 06:41
Monocytes % 5.8 % (1.7-9.3) 02/21/24 06:41
Eosinophils % 1.5 % (0-6) 02/21/24 06:41
Basophils % 0.4 % (0-2) 02/21/24 06:41
ESR 87 mm/hour (0-20) H 02/22/24 09:34
Lactic Acid 0.7 mmol/L (0.7-2.0) 02/18/24 03:48
Procalcitonin 0.21 ng/ml (0.0-0.25) 02/22/24 09:34
Microbiology Results
Micro:
02/22/24 09:34 Blood Parasites Smear - Pending
Blood/Venous
02/18/24 04:48 Blood Culture - Preliminary
Blood/Venous No Growth in 4 days- Final report to follow
02/18/24 04:48 Blood Culture - Preliminary
Blood/Venous No Growth in 4 days- Final report to follow
02/19/24 09:30 Influenza Types A & B ([facility]OREY) - Final
Nasal Swab Negative for Influenza A & B, NAAT
Negative results must be combined with clinical observations
and patient history.
Nucleic Acid Amplification test (NAAT)performed on the
[employer] platform.
Assessment / Plan
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
Fever
- ischemic optic neuropathy would be on my differential - defer further assessment to opthalmology
- note that findings on CT are described as mild and small; patient is symptomatic on exam with mild swelling and tearing
- agree with MRI brain with IV contrast
- no objection to steroids if indicated by ophthalmology
- infrequently caused by infections especially without meningitis
- will send [facility]RA for latent TB, syphilis screen; no recent exposure to cats, can repeat covid ag
- no signs of acute viral infection such as VZV
- ophthalmology has been consulted
- would not recommend empiric antibiotics or antivirals at this time
- follow clinically
Care Review
Plan reviewed with: Physician (Dr Pappas - differential, ischemic)
[2024-02-22] MEDS: NSS (PRESERVATIVE FREE) 0.25 ML IV (12:46)
[2024-02-22] MEDS: ATIVAN 0.5 MG IV (12:47)
--- NOTE | 2024-02-22 12:47 | W.PN.GI.CBS2 ---
Today's Communication / Plan
-
Tolerating low residue diet.
Will arrange for small bowel capsule study as outpatient
Monitor H&H, takes oral iron, this will give dark stool and patient is aware of that after discharge, he can follow-up with PCP for Hemoglobin checks.
Call to schedule for small bowel capsule study. Will sign off, please call back if needed.
Assessment / Plan
-
1. Anemia: With mild chronic anemia with more acute drop, with mixed iron studies, likely some component of GI blood loss with dark stools.
Upper endoscopy unremarkable except small hiatal. Colonoscopy showed diverticulosis, first colon polyp removed and angiectasia's in the distal rectum, likely radiation proctitis without any active bleeding.
Tolerating low residue diet.
Will arrange for small bowel capsule study as outpatient
Monitor H&H, takes oral iron, this will give dark stool and patient is aware of that after discharge, he can follow-up with PCP for Hemoglobin checks.
Call to schedule for small bowel capsule study. Will sign off, please call back if needed.
Subjective
Subjective
Date of Service: February 22, 2024
Patient without any GI complaints but reports eye pain on the right side. No change in vision. No bowel movement since yesterday.
Objective
Data Reviewed
Laboratory Data:
Laboratory Results
02/21/24 06:41
02/22/24 06:06
Laboratory Results
APTT 38.3 Sec (23.4-35.0) H 02/16/24 17:45
Magnesium 1.5 mg/dl (1.6-2.3) L 02/22/24 06:06
Total Bilirubin 0.6 mg/dl (0.2-1.3) 02/17/24 06:46
AST 27 U/L (17-59) 02/17/24 06:46
ALT 26 U/L (0-50) 02/17/24 06:46
Alkaline Phosphatase 174 U/L (38-126) H 02/17/24 06:46
Vital Signs and I&O:
Vital Signs
Temp Pulse Resp BP Pulse Ox
97.6 F 81 16 137/59 95
02/22/24 11:35 02/22/24 11:35 02/22/24 11:35 02/22/24 11:35 02/22/24 11:35
I&O
02/21/24 02/22/24 02/23/24
06:59 06:59 06:59
Intake Total 3360 / 3360 1080 / 1080
Output Total 500 / 500
Balance 2860 / 2860 1080 / 1080
Physical Exam
Physical Exam
GI: Soft, Non Distended and Non Tender
[2024-02-22 14:53] LABS: COVID-19 Antigen Negative (Negative)
--- NOTE | 2024-02-22 15:01 | CON.NEURO ---
Neuro Assessment/Plan
Assessment
Abrupt onset of right eye discomfort
Scratched cornea, now improved with application of unknown medication by Ophthalmology, no prior.
Plan
Supportive care
Check blood work for additional metabolic abnormalities which may be producing symptomatology
Would not at this time pursue additional steroid infusions or other therapies other than treatment of corneal tear as changes seen on MRI may reflect or changes from the surface of the eye
If the patient has persistent worsening of eye pain or loss of vision in the eye, would initiate immediately high-dose IV steroids
Will follow as needed.
Consultation
Order
Date of Consultation: 02/22/24
Requesting Provider: Hospitalists
Reason for Consult: Right eye pain
Subjective/Objective
Subjective Data
Date of Service: February 22, 2024
Right-Handed
Patient presented to this hospital's emergency department with a 3-week history of fatigue, weakness, dyspnea on February 16, 2024. Patient was described as also becoming increasingly anemic. Patient was found to have lower extremity edema as well.
During his hospitalization, the patient was found to have mild acute on chronic heart failure with preserved ejection fraction exacerbation as well as recurrent low-grade temperatures. Due to lower extremity discomfort the patient was initiated on
gabapentin on 02/21/2024.
Following colonoscopy, patient was described as having a swollen right eye with tearing starting yesterday. MRI of brain was performed leading to this consultation. No involvement of the left eye. No visual loss.
Objective Data
Vital Signs
Temp Pulse Resp BP Pulse Ox
36.4 C 81 16 137/59 95
02/22/24 11:35 02/22/24 11:35 02/22/24 11:35 02/22/24 11:35 02/22/24 11:35
Lab Results
02/21/24 06:41
02/22/24 06:06
APTT 38.3 Sec (23.4-35.0) H 02/16/24 17:45
Sodium 133 mmol/L (135-145) L 02/22/24 06:06
Potassium 4.6 mmol/L (3.5-5.1) 02/22/24 06:06
BUN 23 mg/dl (9-20) H 02/22/24 06:06
Glucose 119 mg/dl (70-99) H 02/22/24 06:06
Calcium 8.6 mg/dl (8.4-10.2) 02/22/24 06:06
Jzj-Z-Ooqdcpaethn Pept 5240 pg/ml 02/16/24 21:17
Vitamin B12 969 pg/ml (239-931) H 02/17/24 06:46
Patient Allergies
oxycodone [Oxycodone] Allergy (Verified 02/16/24 17:29)
Itching
Review of Systems
-
History Source: Patient
All other systems: Reviewed and negative
EENT: Negative Decreased Vision or Swallowing Difficulty
Respiratory: Negative Trouble Breathing
Cardiac: Negative Chest Pain
Abdomen/GI: Negative Incontinence of Stool
Genitourinary: Negative Incontinence
Musculoskeletal: Negative Back Pain or Neck Pain
Neuro: Negative Dizzy or Headache
Physical Exam
-
General: No Apparent Distress and Appears Stated Age
Eyes: Round OU, [place] Conjunctivae, No Ptosis and Other (Redness over the right superior eyelid); Negative Able to visualize OU
HEENT: Anicteric and Moist Mucous Membranes
Neck: Full Range of Motion
Respiratory: No Dyspnea
Cardiac: No JVD
GI: Normal Bowel Sounds and Soft
Skin: Unremarkable
Extremities: No Clubbing, No Cyanosis and No Edema
Psych: Intact Judgement/Insight
Extended Neurological Exam
Mood & Affect: Mood Unremarkable and Affect Unremarkable
Attention Span & Concentration: Awake, Alert, Interactive and No Difficulty with 2 Step Request
Memory: Negative Unable to Recall Personal History
Tremor: Hand Tremor Absent and Head Tremor Absent
Speech: Quality Unremarkable and Quantity Unremarkable
Cranial Nerve II: Left Eye: Pupillary Reactivity Unremarkable and Visual Valdivia Intact; Negative Pupillary Size Unremarkable (1.5 mm) or Smaller than Contralateral
Cranial Nerve II: Right Eye: Pupillary Reactivity Unremarkable and Visual Valdivia Intact; Negative Pupillary Size Unremarkable (1.5 mm) or Smaller than Contralateral
Cranial Nerves III, IV, : Extraocular Movement: Extraocular Movement Full in all Directions
Cranial Nerve VII: Facial Symmetry: Normal Facial Symmetry
Cranial Nerve VIII: Hearing: Unremarkable Hearing to Normal Conversational Volume
Cranial Nerves IX, X: Palate Movement: Palate Elevation Symmetric
Cranial Nerve XI: Shoulder Shrug: Unremarkable
Muscle Strength, Overall: Spontaneously Moves (All extremities)
Muscle Bulk & Tone: Bulk Unremarkable and Tone Unremarkable
Pronator Drift: No Drift in Upper Extremities and No Drift in Lower Extremities
Deep Tendon Reflexes: Trace Throughout
Touch Sensation: Unremarkable
Coordination: Eycsot-vnbh-tkjmkh Testing Unremarkable
Babinski Sign: Absent Bilaterally
Data Reviewed
-
MRI Head: Report Reviewed and Image Reviewed
Labs: Report Reviewed
Reviewed with: Physician and Patient
Old Records: Summarized
Medications
-
Active Medications
Generic Name Dose Route Start Last Admin
Trade Name Freq PRN Reason Stop Dose Admin
Acetaminophen 650 mg 02/19/24 12:03 02/22/24 12:26
Acetaminophen 325 Mg Tablet PO 03/18/24 12:02 650 mg
Q6HPRN PRN Administration
mild pain/ fever>100.5F
Calcium Carbonate 500 mg 02/19/24 18:00 02/21/24 17:28
Calcium Carbonate 500 Mg Tablet PO 03/18/24 17:59 500 mg
QPM SATISH Administration
Cholecalciferol 125 mcg 02/17/24 08:00 02/22/24 09:01
Cholecalciferol (Vitamin D3) 125 Mcg Tablet (5,000 Units) PO 03/16/24 07:59 125 mcg
DAILY SATISH Administration
Cyanocobalamin 1,000 mcg 02/17/24 08:00 02/22/24 09:01
Cyanocobalamin 1,000 Mcg Tablet PO 03/16/24 07:59 1,000 mcg
DAILY SATISH Administration
Dextrose 12.5 grams 02/17/24 11:59
Dextrose 50% (0.5 Grams/Ml) 50 Ml Syringe IV 03/16/24 11:58
[id number] PRN
hypoglycemia
Protocol
Doxazosin Mesylate 8 mg 02/17/24 08:00 02/22/24 09:01
Doxazosin 4 Mg Tablet PO 03/16/24 07:59 8 mg
DAILY SATISH Administration
Erythromycin 0 applic 02/22/24 14:45
Erythromycin 0.5% (Ophthalmic Ointment) 1 Gram Tube OPHTH 03/03/24 14:44
QID SATISH
Ferrous Sulfate 325 mg 02/17/24 08:00 02/22/24 09:02
Ferrous Sulfate 325 Mg Tablet PO 03/16/24 07:59 325 mg
DAILY SATISH Administration
Furosemide 40 mg 02/20/24 08:00 02/22/24 09:02
Furosemide 40 Mg Tablet PO 03/19/24 07:59 40 mg
DAILY SATISH Administration
Gabapentin 100 mg 02/18/24 16:00 02/22/24 09:02
Gabapentin 100 Mg Capsule PO 03/17/24 15:59 100 mg
TID SATISH Administration
Glucagon 1 mg 02/17/24 11:59
Glucagon 1 Mg Vial IM 03/16/24 11:58
PRN PRN
hypoglycemia
Protocol
Guaifenesin 100 mg 02/18/24 03:12 02/18/24 03:48
Guaifenesin Oral Solution (200 Mg/10 Ml) Cup PO 03/17/24 03:11 100 mg
Q4HPRN PRN Administration
cough
Insulin Aspart 0 units 02/20/24 12:30 02/22/24 12:27
Insulin Aspart Low Resistance 300 Units/3 Ml Pen.Injctr SC 03/19/24 08:51 1 units
AC SATISH Administration
Protocol
Metoprolol Succinate 150 mg 02/17/24 08:00 02/22/24 09:00
Metoprolol 50 Mg Extended Release Tablet PO 03/16/24 07:59 150 mg
DAILY SATISH Administration
Multivitamins Therapeutic 1 tablet 02/17/24 08:00 02/22/24 09:02
Multivitamin Tablet PO 03/16/24 07:59 1 tablet
DAILY SATISH Administration
Pantoprazole Sodium 40 mg 02/17/24 00:37 02/22/24 09:06
Pantoprazole Sodium 40 Mg/10 Ml Vial IV 03/16/24 00:36 40 mg
BID SATISH Administration
Potassium Chloride 20 meq 02/20/24 08:00 02/22/24 09:02
Potassium Chloride 20 Meq Extended Release Tablet PO 03/19/24 07:59 20 meq
DAILY SATISH Administration
Pravastatin Sodium 10 mg 02/17/24 08:00 02/22/24 09:01
Pravastatin 10 Mg Tablet PO 03/16/24 07:59 10 mg
DAILY SATISH Administration
Sodium Chloride 10 ml 02/17/24 00:45 02/22/24 09:06
Sodium Chloride 0.9% (Preservative Free) 10 Ml Vial IV 03/16/24 00:44 10 ml
BID SATISH Administration
Sodium Chloride 0 flush 02/17/24 16:00 02/21/24 08:07
Sodium Chloride 0.9% (Flush) Syringe IV 03/16/24 15:59 1 flush
PER PROTOCOL SATISH Administration
Tramadol HCl 50 mg 02/17/24 00:37 02/22/24 04:55
Tramadol Hcl 50 Mg Tablet PO 03/16/24 00:36 50 mg
BIDPRN PRN Administration
moderate pains
Tramadol HCl 50 mg 02/17/24 22:00 02/21/24 22:41
Tramadol Hcl 50 Mg Tablet PO 07/30/24 21:59 50 mg
HS SATISH Administration
Home Medications
�Medication �Instructions �Recorded
metoprolol succinate 100 mg 150 mg PO DAILY Heart Failure 01/28/13
tablet,extended release 24 hr
multivitamin (Daily Multi-Vitamin 1 ea PO DAILY Supplement 01/28/13
tablet)
calcium carbonate 600 mg-vitamin 1 tab PO QPM Supplement ##0 07/08/16
D3 10 mcg (400 unit) tablet
(Calcium 600 + D(3))
doxazosin 8 mg tablet (Cardura) 8 mg PO DAILY Urinary Issue 07/08/16
hydrochlorothiazide 25 mg tablet 25 mg PO DAILY Blood Pressure 07/08/16
metformin 500 mg tablet 500 mg PO BID Diabetes 07/08/16
acetaminophen 500 mg tablet 1,000 mg PO HSPRN PRN rls 02/16/24
aspirin 81 mg tablet,delayed 81 mg PO DAILY Blood Clot 02/16/24
release Prevention/Tx
cholecalciferol (vitamin D3) 125 125 mcg PO DAILY Supplement 02/16/24
mcg (5,000 unit) tablet (Vitamin
D3)
cyanocobalamin (vitamin B-12) 1,000 mcg PO DAILY Supplement 02/16/24
1,000 mcg tablet
ferrous sulfate 325 mg (65 mg 325 mg PO DAILY Supplement 02/16/24
iron) tablet
furosemide 20 mg tablet (Lasix) 20 mg PO DAILY Fluid 02/16/24
Retention/Swelling
glucosamine sulf dipot 1 cap PO BID Supplement 02/16/24
chlr,msm,chond 550 mg-C 30 mg-monica
1 mg capsule (Glucosamine
Chondroitin)
omeprazole 40 mg capsule,delayed 40 mg PO DAILY Gastrointestinal 02/16/24
release Issue
pravastatin 10 mg tablet 10 mg PO DAILY High Cholesterol 02/16/24
tramadol 50 mg tablet 50 mg PO BIDPRN PRN moderate pains 02/16/24
tramadol 50 mg tablet 50 mg PO HS Pain 02/16/24
furosemide 40 mg tablet 40 mg PO DAILY 30 days #30 tabs 02/20/24
potassium chloride 20 mEq 20 meq PO DAILY 30 days #30 tabs 02/20/24
tablet,extended release(part/cryst)
Past History
Past History
ED Past Medical History: Arrthythmia (PVCs), Cancer (Prostate treated with CyberKnife), GERD, HTN, Hypercholesterolemia, NIDDM and Other (Carpal tunnel syndrome, anemia)
ED Past Surgical History: Orthopedic (Bilateral rotator cuff repairs, left knee arthroplasty 2015) and Urological (Neurogenic bladder repair)
Social History
Tobacco: Former smoker
Personal:
Living: with family
Employment: Retired
Family History
Family History: Other (Reviewed and noncontributory)
[2024-02-22] MEDS: ERYTHROMYCIN 0.5% OPHTHALMIC OINTMENT 1 APPLIC OPHTH ×2 (16:07→20:21)
[2024-02-22 16:39] LABS: TSH Reflex To Free T4 2.23 uIU/ml (0.47-4.68)
[2024-02-22 17:30] LABS: Glucose - Point of Care 250 mg/dl (70-99)
[2024-02-22] MEDS: NOVOLOG FLEXPEN-LOW RESISTANCE 3 UNITS SC (17:47)
[2024-02-22] MEDS: OSCAL CAL 500 500 MG PO (17:48)
[2024-02-22 21:21] LABS: Glucose - Point of Care 139 mg/dl (70-99)
--- NOTE | 2024-02-22 23:00 | PTCARENOTE ---
Patients BP elevated, stating 9/10 pain to R eye, medicated per request with tylenol. BP remains elevated- House [employer] notified order IV hydralazine. Pt given ultram- BP rechecked 137/60 IV hydralazine held. [employer] aware.
[2024-02-22] MEDS: ERYTHROMYCIN 0.5% OPHTHALMIC OINTMENT OPHTH (23:17)
[2024-02-23] VITALS (7 sets, daily range): BP systolic 133–169; BP diastolic 67–93; PULSE 85–87; O2SAT 95; BMI 25.2
[2024-02-23] MEDS: TYLENOL 650 MG PO ×2 (02:46→15:26)
[2024-02-23] MEDS: ULTRAM 50 MG PO ×3 (04:57→22:21)
[2024-02-23 07:47] LABS: Glucose - Point of Care 184 mg/dl (70-99)
[2024-02-23] MEDS: NOVOLOG FLEXPEN-LOW RESISTANCE 1 UNITS SC ×3 (07:54→17:31)
[2024-02-23] MEDS: VITAMIN D3 (cholecalciferol) 125 MCG PO (07:55)
[2024-02-23] MEDS: TOPROL XL 150 MG PO (07:55)
[2024-02-23] MEDS: ERYTHROMYCIN 0.5% OPHTHALMIC OINTMENT 1 APPLIC OPHTH ×4 (07:56→22:22)
[2024-02-23] MEDS: PRAVACHOL 10 MG PO (07:56)
[2024-02-23] MEDS: KCL 20 MEQ PO (07:56)
[2024-02-23] MEDS: CARDURA 8 MG PO (07:56)
[2024-02-23] MEDS: FEOSOL 325 MG PO (07:56)
[2024-02-23] MEDS: LASIX 40 MG PO (07:57)
[2024-02-23] MEDS: VITAMIN B-12 1000 MCG PO (07:57)
[2024-02-23] MEDS: NEURONTIN 100 MG PO ×3 (07:57→22:21)
[2024-02-23] MEDS: THERAGRAN 1 TABLET PO (07:58)
[2024-02-23] MEDS: NSS (PRESERVATIVE FREE) 10 ML IV ×2 (07:58→20:11)
[2024-02-23] MEDS: FLUSH (NSS) 1 FLUSH IV (07:58)
[2024-02-23] MEDS: PROTONIX IV 40 MG IV ×2 (07:58→20:11)
[2024-02-23 08:16] LABS: Blood Urea Nitrogen 26 mg/dl (9-20); Calcium 8.3 mg/dl (8.4-10.2); Carbon Dioxide 28 mmol/L (22-30); Chloride 99 mmol/L (98-107); Estimated Creatinine Clearance 56 ml/min; Glucose 152 mg/dl (70-99); Potassium 4.4 mmol/L (3.5-5.1); Sodium 132 mmol/L (135-145); eGFR > 60.00
--- NOTE | 2024-02-23 10:25 | W.PN.HOSP.TC ---
Today's Communication/Plan
-
Continue to monitor eye symptoms
Erythromycin ointment
P.o. Lasix
Assessment / Plan
Assessment / Plan
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
-CT There is a small amount of inflammatory stranding in the right orbit and there is increased attenuation along the periphery of the right optic nerve as compared with the left (image #13 coronal series). Right optic nerve minimally larger as
compared with the left.
-Appreciate ID recommendation and blood work ordered low suspicious for syphilis/DVT. COVID-negative.
-No prior history of autoimmune disease
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
-Ophthalmology consultation -evaluated the patient. Patient with no afferent pupillary defect. Patient was seen by Dr. Chidi Nolen.
-Symptoms started postprocedure and suspecting possibility of corneal abrasion
-Also was evaluated by neurology and not concern for multiple sclerosis.
-Patient with improvement in pain. Denies diplopia. No headache.
-Per ophthalmology recs started patient erythromycin ointment
# Normocytic anemia
-Hemoglobin 8 Transfuse for Hgb <7.
-Hemoccult negative, black stools likely secondary to iron supplement, although BUN elevated
-B12 and folate wnl. On po iron supplements.
-Continue iron supplement
-IV Protonix 40 twice daily
-Hold aspirin
-EGD today-no gross lesion noted in the entire examined stomach. 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
-Colonoscopy 7/6-4 mm polyp was found to transverse colon. Polyp was sessile. Resected. Diverticulosis. No ibuprofen, naproxen or other NSAIDs today for 5 days after polyp removal. Repeat study in 5 years with outpatient capsule small bowel
study
-GI consulted
# Mild acute on chronic HFpEF exacerbation
-Chest x-ray shows mild cardiomegaly with suspected mild interstitial cardiogenic pulm edema
-Cardiac BNP 5000
-Check I's and O's, daily weights
-ECHO with Normal left ventricular systolic function. Normal regional wall motion. Mild concentric left ventricular hypertrophy. Left ventricular ejection fraction is 55-60% by volumetric assessment. Stage II diastolic dysfunction suggestive of
abnormal relaxation and increased filling pressures. Mild mitral regurgitation. Mild to moderate tricuspid regurgitation. Estimated pulmonary artery. Trivial pericardial effusion.
-IV lasix 40mg BID and now transition to p.o. 40 mg Lasix.
-Cards recs
#Fever's unclear etiology
CXR with pulm edema. No productive cough.
COVID negative
Influenza negative
blood culture in lab remains negative so far
no urinary symptoms UA negative
LE edema check venous Doppler negative for dvt
Further ID recs
Type 2 diabetes
-Hold metformin
-Check a1c at 6.5, accuchecks.
Neuropathic pain
-start low dose gabapentin 100mg TID
Essential hypertension
-DC HCTZ and on p.o. Lasix continued
-Continue metoprolol
Osteoarthritis
-Continue tramadol
GERD
-Continue Apriso
Prostate cancer
-Continue doxazosin
Hypomagnesemia
Replete and monitor
History of prior neurogenic bladder
DNR/DNI
DVT prophylaxis�SCDs
Anticipated Discharge: Within 24 hours
Subjective/Interval History
-
Date of Service: February 23, 2024
States improvement in right eye pain
Wearing right eye patch
Objective Data
-
Labs:
Laboratory Results
02/23/24
07:03
Sodium 132 L
Potassium 4.4
Chloride 99
Carbon Dioxide 28
BUN 26 H
Creatinine 1.0
Glucose 152 H
Calcium 8.3 L
Vital Signs:
Vital Signs
Temp Pulse Resp BP Pulse Ox
98 F 83 20 150/70 93
02/23/24 07:50 02/23/24 07:57 02/23/24 07:50 02/23/24 07:57 02/23/24 07:53
I&O
02/22/24 02/23/24 02/24/24
06:59 06:59 06:59
Intake Total 1080 / 1080 950 / 950
Balance 1080 / 1080 950 / 950
Physical Exam
-
General: Well Developed and No Apparent Distress
HEENT: Normocephalic, Atraumatic, Moist Mucous Membranes and PERRLA (Right eye with mild increase pink conjunctiva with tearing. No diffuse erythema noted. No vesicles noted.)
Respiratory: Clear to Auscultation
Cardiac: Regular Rhythm and S1/S2; Negative Murmur, Rub or Gallop
GI: Soft, Nontender, Nondistended and Normal Bowel Sounds; Negative Organomegaly
Rectal: Deferred by Provider
Musculoskeletal: No Clubbing, No Cyanosis, Edema, Right Lower Extrem (Improved and now is manoj wrapped) and Edema, Left Lower Extrem (Improved and now is manoj wrapped)
Skin: Negative Rash
Neuro: Awake, Alert, Oriented, No Motor Deficits and Nonfocal/Grossly Intact; Negative Slurred Speech or Facial Droop
Psych: Calm
[2024-02-23 11:52] LABS: Glucose - Point of Care 198 mg/dl (70-99)
--- NOTE | 2024-02-23 12:30 | W.PN.ID1 ---
Date of Service
Date of Service: February 23, 2024
Today's Communication
- will send lyme screening, [facility]RA for latent TB, syphilis screen; no recent exposure to cats, repeat covid ag remains negative
- erythromycin ophthalmic ointment per ophthalmology
- follow clinically
Assessment / Plan
Optic perineuritis
Suspected Corneal abrasion
Fever - resolved
- no objection to steroids
- infrequently caused by infections especially without meningitis
- will send lyme screening, IGRA for latent TB, syphilis screen; no recent exposure to cats, repeat covid ag remains negative
- erythromycin ophthalmic ointment per ophthalmology
- follow clinically
Chief Complaint
-: Other (optic neuritis)
Subjective / Review of Systems
afebrile
bp stable
without leukocytosis
MRI brain: optic perineuritis.
started erythromycin ophthalmic ointment
pain improved
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
Vital Signs / Physical Exam
Vital Signs
Vital Signs
Temp Pulse Resp BP Pulse Ox
99.3 F 90 18 135/93 97
02/23/24 11:21 02/23/24 11:21 02/23/24 11:21 02/23/24 11:21 02/23/24 11:21
Physical Exam
Constitutional: No Acute Distress
Cardiovascular: Regular Rate and S1/S2; Negative Murmur or Rub
Pulmonary: Clear and Symmetric; Negative Wheezes or Rales
Gastrointestinal: Soft, Non Tender, Non Distended and Normal Bowel Sounds
Skin: Warm and Dry; Negative Rash or Jaundice
Objective Data
Lab Data
Lab Results
02/21/24 06:41
02/23/24 07:03
ESR 87 mm/hour (0-20) H 02/22/24 09:34
APTT 38.3 Sec (23.4-35.0) H 02/16/24 17:45
Estimated Creat Clear 56 ml/min 02/23/24 07:03
Lactic Acid 0.7 mmol/L (0.7-2.0) 02/18/24 03:48
Total Bilirubin 0.6 mg/dl (0.2-1.3) 02/17/24 06:46
AST 27 U/L (17-59) 02/17/24 06:46
ALT 26 U/L (0-50) 02/17/24 06:46
Alkaline Phosphatase 174 U/L (38-126) H 02/17/24 06:46
C-Reactive Protein 151.60 mg/L (0.0-10.00) H 02/22/24 06:06
Most recent labs reviewed.
Micro Results:
02/18/24 04:48 Blood Culture - Final
Blood/Venous No Growth - Final Report
02/18/24 04:48 Blood Culture - Final
Blood/Venous No Growth - Final Report
02/22/24 09:34 Blood Parasites Smear - Final
Blood/Venous No blood parasites seen.
02/19/24 09:30 Influenza Types A & B (KOREY) - Final
Nasal Swab Negative for Influenza A & B, NAAT
Negative results must be combined with clinical observations
and patient history.
Nucleic Acid Amplification test (NAAT)performed on the
[employer] platform.
--- NOTE | 2024-02-23 15:31 | PTCARENOTE ---
Pt AAO x3, ABDULLAHI well. OOB in chair for most of shift; ambulatory to BR with minimal assistance/cane; trev well, no c/o weakness/dizziness. Pt c/o 'feeling tired' at times. Pt still c/o Rt eye pain/headache; mod effect with prn pain meds. Rt eye
reddened/edematous/tearing; wearing eye patch/shield over site. VSS. On room air- pulse ox 96%. Abd large, soft, trev PO well. Voiding in BR; non-compliant with monitoring output; urinal at bedside. BURKE wraps intact to BLE. Pt has +1 edema LUE/
+1 edema BLE L>R. Resting in chair at present. Will continue to monitor.
[2024-02-23 16:52] LABS: Glucose - Point of Care 165 mg/dl (70-99)
[2024-02-23] MEDS: OSCAL CAL 500 500 MG PO (17:32)
[2024-02-23 21:22] LABS: Glucose - Point of Care 176 mg/dl (70-99)
[2024-02-24] MEDS: ULTRAM 50 MG PO (02:47)
[2024-02-24 03:04] VITALS: BP 170/79
[2024-02-24 06:00] VITALS: BMI 25.2
[2024-02-24 07:00] VITALS: BP 156/115
[2024-02-24 08:08] LABS: Glucose - Point of Care 136 mg/dl (70-99)
[2024-02-24] MEDS: NOVOLOG FLEXPEN-LOW RESISTANCE SC (08:24)
[2024-02-24] MEDS: LASIX 40 MG PO (08:58)
[2024-02-24] MEDS: NEURONTIN 100 MG PO (08:58)
[2024-02-24] MEDS: THERAGRAN 1 TABLET PO (08:58)
[2024-02-24] MEDS: VITAMIN D3 (cholecalciferol) 125 MCG PO (08:59)
[2024-02-24] MEDS: VITAMIN B-12 1000 MCG PO (08:59)
[2024-02-24] MEDS: TOPROL XL 150 MG PO (08:59)
[2024-02-24] MEDS: PRAVACHOL 10 MG PO (08:59)
[2024-02-24] MEDS: KCL 20 MEQ PO (08:59)
[2024-02-24] MEDS: FEOSOL 325 MG PO (08:59)
[2024-02-24] MEDS: CARDURA 8 MG PO (08:59)
[2024-02-24] MEDS: NSS (PRESERVATIVE FREE) 10 ML IV (09:00)
[2024-02-24] MEDS: PROTONIX IV 40 MG IV (09:00)
[2024-02-24] MEDS: ERYTHROMYCIN 0.5% OPHTHALMIC OINTMENT 1 APPLIC OPHTH ×2 (09:07→14:08)
--- NOTE | 2024-02-24 10:15 | W.PN.ID1 ---
Date of Service
Date of Service: February 24, 2024
Today's Communication
- await lyme screening, [facility] for latent TB, syphilis screen - I will continue to follow these periodically, peripherally
Assessment / Plan
Optic perineuritis
Suspected Corneal abrasion
Fever - resolved
- no objection to steroids
- infrequently caused by infections especially without meningitis
- erythromycin ophthalmic ointment per ophthalmology
- await lyme screening, [facility]RA for latent TB, syphilis screen - I will continue to follow these periodically, peripherally
Chief Complaint
-: Other (optic neuritis)
Subjective / Review of Systems
no further fevers
bp stable
labs pending this am
serologies pending
Vital Signs / Physical Exam
Vital Signs
Vital Signs
Temp Pulse Resp BP Pulse Ox
98.8 F 96 14 156/115 94
02/24/24 07:00 02/24/24 08:59 02/24/24 07:00 02/24/24 08:59 02/24/24 07:00
Physical Exam
Constitutional: No Acute Distress
Cardiovascular: Regular Rate and S1/S2; Negative Murmur or Rub
Pulmonary: Clear and Symmetric; Negative Wheezes or Rales
Gastrointestinal: Soft, Non Tender, Non Distended and Normal Bowel Sounds
Skin: Warm and Dry; Negative Rash or Jaundice
Objective Data
Lab Data
ESR 87 mm/hour (0-20) H 02/22/24 09:34
APTT 38.3 Sec (23.4-35.0) H 02/16/24 17:45
Estimated Creat Clear 56 ml/min 02/23/24 07:03
Lactic Acid 0.7 mmol/L (0.7-2.0) 02/18/24 03:48
Total Bilirubin 0.6 mg/dl (0.2-1.3) 02/17/24 06:46
AST 27 U/L (17-59) 02/17/24 06:46
ALT 26 U/L (0-50) 02/17/24 06:46
Alkaline Phosphatase 174 U/L (38-126) H 02/17/24 06:46
C-Reactive Protein 151.60 mg/L (0.0-10.00) H 02/22/24 06:06
Most recent labs reviewed.
Micro Results:
02/18/24 04:48 Blood Culture - Final
Blood/Venous No Growth - Final Report
02/18/24 04:48 Blood Culture - Final
Blood/Venous No Growth - Final Report
02/22/24 09:34 Blood Parasites Smear - Final
Blood/Venous No blood parasites seen.
02/19/24 09:30 Influenza Types A & B (KOREY) - Final
Nasal Swab Negative for Influenza A & B, NAAT
Negative results must be combined with clinical observations
and patient history.
Nucleic Acid Amplification test (NAAT)performed on the
[employer] platform.
[2024-02-24 10:18] LABS: % Basophils 0.3 % (0-2); % Eosinophils 1.5 % (0-6); % Immature Granulocytes 4.3 % (0-0.5); % Lymphocytes 13.6 % (20.5-51.1); % Monocytes 5.9 % (1.7-9.3); % Neutrophils 74.4 % (42.2-75.2); Absolute Eosinophils 0.1 10^3/uL (0-0.7); Absolute Immature Granulocytes 0.3 10^3/uL (0-0.05); Absolute Monocytes 0.4 10^3/uL (0.1-0.6); Absolute Neutrophils 5.4 10^3/uL (1.4-6.5); Hematocrit 24.6 % (39.0-52.0); Hemoglobin 8.1 g/dL (13.0-18.0); Mean Corp Hgb Conc. 32.9 g/dL (33.0-37.0); Mean Corpuscular Volume 94.3 fL (80.0-94.0); Mean Platelet Volume 10.1 fL (7.4-10.4); Nucleated Red Blood Cells % 0 % (-); Platelet Count 196 10^3/uL (130-400); Red Blood Cell Count 2.61 10^6/uL (4.70-6.10); White Blood Cell Count 7.3 10^3/uL (4.8-10.8)
[2024-02-24 10:42] LABS: Blood Urea Nitrogen 23 mg/dl (9-20); Calcium 8.7 mg/dl (8.4-10.2); Carbon Dioxide 26 mmol/L (22-30); Chloride 99 mmol/L (98-107); Estimated Creatinine Clearance 56 ml/min; Glucose 166 mg/dl (70-99); Potassium 4.8 mmol/L (3.5-5.1); Sodium 133 mmol/L (135-145); eGFR > 60.00
--- NOTE | 2024-02-24 10:46 | PN.CDI ---
CDI
- -
CDI:
Physician Documentation Request
Admit Date: 02/17/24 08:22
Dear Doctor Mian,
Please review the following and provide your response in the progress notes.
Clinical Indicators:
Laboratory Tests
02/16/24 02/17/24 02/18/24
17:45 06:46 03:48
Sodium 136 135 134 L
02/19/24 02/20/24 02/21/24
06:39 07:08 06:41
Sodium 136 134 L 133 L
02/22/24 02/23/24 02/24/24
06:06 07:03 09:17
Sodium 133 L 132 L 133 L
Based on the above, please clarify in the progress notes, the appropriate diagnosis, if significant, that supports the above abnormalities and additional evaluation, monitoring and/or treatment rendered:
Hyponatremia
Abnormal lab value, clinically insignificant
Other(please specify)
Use of terms such as suspected, likely, concern for, or probable (associated with a specific diagnosis that is being evaluated, monitored, or treated as if it exists) are acceptable and can be coded in the inpatient setting, when documented at the
time of discharge.
Thank you,
Meri Segura RN BSN CCDS
CDI Specialist
please contact via tiger text
Please use your independent medical judgment in providing your response.
--- NOTE | 2024-02-24 11:03 | W.PN.HOSP.TC ---
Today's Communication/Plan
-
Outpatient cardiology and ophthalmology follow-up
Continue p.o. Lasix
DC HCTZ
Assessment / Plan
Assessment / Plan
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
-CT There is a small amount of inflammatory stranding in the right orbit and there is increased attenuation along the periphery of the right optic nerve as compared with the left (image #13 coronal series). Right optic nerve minimally larger as
compared with the left.
-Appreciate ID recommendation and blood work ordered low suspicious for syphilis/DVT. COVID-negative.
-No prior history of autoimmune disease
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
-Ophthalmology consultation -evaluated the patient. Patient with no afferent pupillary defect. Patient was seen by Dr. Chidi Nolen.
-Symptoms started postprocedure and suspecting possibility of corneal abrasion
-Also was evaluated by neurology and not concern for multiple sclerosis.
-Patient with improvement in pain. Denies diplopia. No headache.
-Per ophthalmology recs started patient erythromycin ointment
-PT has appointment with his primary clinical instructor next week. Recommend to follow-up keep appointment. Improvement in pain.
# Normocytic anemia
-Hemoglobin 8 Transfuse for Hgb <7.
-Hemoccult negative, black stools likely secondary to iron supplement, although BUN elevated
-B12 and folate wnl. On po iron supplements.
-Continue iron supplement
-IV Protonix 40 twice daily
-Hold aspirin
-EGD today-no gross lesion noted in the entire examined stomach. 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
-Colonoscopy 7/6-4 mm polyp was found to transverse colon. Polyp was sessile. Resected. Diverticulosis. No ibuprofen, naproxen or other NSAIDs today for 5 days after polyp removal. Repeat study in 5 years with outpatient capsule small bowel
study
-GI consulted
# Mild acute on chronic HFpEF exacerbation
-Chest x-ray shows mild cardiomegaly with suspected mild interstitial cardiogenic pulm edema
-Cardiac BNP 5000
-Check I's and O's, daily weights
-ECHO with Normal left ventricular systolic function. Normal regional wall motion. Mild concentric left ventricular hypertrophy. Left ventricular ejection fraction is 55-60% by volumetric assessment. Stage II diastolic dysfunction suggestive of
abnormal relaxation and increased filling pressures. Mild mitral regurgitation. Mild to moderate tricuspid regurgitation. Estimated pulmonary artery. Trivial pericardial effusion.
-IV lasix 40mg BID and now transition to p.o. 40 mg Lasix.
-Cards recs
#Fever's unclear etiology
CXR with pulm edema. No productive cough.
COVID negative
Influenza negative
blood culture in lab remains negative so far
no urinary symptoms UA negative
LE edema check venous Doppler negative for dvt
Further ID recs
Hyponatremia
na improved
Type 2 diabetes
-Hold metformin
-Check a1c at 6.5, accuchecks.
Neuropathic pain
-start low dose gabapentin 100mg TID
Essential hypertension
-DC HCTZ and on p.o. Lasix continued
-Continue metoprolol
Osteoarthritis
-Continue tramadol
GERD
-Continue Apriso
Prostate cancer
-Continue doxazosin
Hypomagnesemia
Replete and monitor
History of prior neurogenic bladder
DNR/DNI
DVT prophylaxis�SCDs
More than 30 minutes spent in discharge including
Final examination of the patient
Summarizing hospital stay
Instructions for continuing care to all relevant caregivers
Preparation of discharge records, prescriptions, and referral forms
Total time spent (in minutes): 45
Anticipated Discharge: Today
Subjective/Interval History
-
Date of Service: February 24, 2024
significant improvement in eye pain
wearing eye patch
no headache
Objective Data
-
Labs:
Laboratory Results
02/24/24
09:17
WBC 7.3
Hgb 8.1 L
Hct 24.6 L
Plt Count 196
Sodium 133 L
Potassium 4.8
Chloride 99
Carbon Dioxide 26
BUN 23 H
Creatinine 1.0
Glucose 166 H
Calcium 8.7
Vital Signs:
Vital Signs
Temp Pulse Resp BP Pulse Ox
98.8 F 96 14 156/115 94
02/24/24 07:00 02/24/24 08:59 02/24/24 07:00 02/24/24 08:59 02/24/24 08:50
I&O
02/23/24 02/24/24 02/25/24
06:59 06:59 06:59
Intake Total 950 / 950 1400 / 1400
Balance 950 / 950 1400 / 1400
Physical Exam
-
General: Well Developed and No Apparent Distress
HEENT: Normocephalic, Atraumatic, Moist Mucous Membranes, [place] Conjunctivae (R eye) and PERRLA (Right eye with mild increase pink conjunctiva with tearing. No diffuse erythema noted. No vesicles noted. )
Respiratory: Clear to Auscultation
Cardiac: Regular Rhythm and S1/S2; Negative Murmur, Rub or Gallop
GI: Soft, Nontender, Nondistended and Normal Bowel Sounds; Negative Organomegaly
Rectal: Deferred by Provider
Musculoskeletal: No Clubbing, No Cyanosis, Edema, Right Lower Extrem (Improved and now is manoj wrapped) and Edema, Left Lower Extrem (Improved and now is manoj wrapped)
Skin: Negative Rash
Neuro: Awake, Alert, Oriented, No Motor Deficits and Nonfocal/Grossly Intact; Negative Slurred Speech or Facial Droop
Psych: Calm
--- NOTE | 2024-02-24 11:10 | W.DCSUMMARY ---
Discharge Summary
Discharge Data
Date of Admission: 02/17/24
Date of Discharge: 02/24/24
-
Pending Results: No
Hospital Course
83 male past medical history of diabetes mellitus, neuropathy, primary hypertension, chronic HFpEF, status, GERD, prostate cancer who is presenting from PCP office for anemia. Patient was also found to be in acute on chronic heart failure
exacerbation. Cardiology was consulted. Patient was diuresed appropriately with IV Lasix. IV Lasix was weaned off and transition to p.o. 40 mg Lasix. ECHO with Normal left ventricular systolic function. Normal regional wall motion. Mild
concentric left ventricular hypertrophy. Left ventricular ejection fraction is 55-60% by volumetric assessment. Stage II diastolic dysfunction suggestive of abnormal relaxation and increased filling pressures. Mild mitral regurgitation. Mild to
moderate tricuspid regurgitation. Estimated pulmonary artery. Trivial pericardial effusion. Patient was also taking HCTZ prior to arrival with Lasix and HCTZ was discontinued. Patient was eval by gastroenterology and underwent endoscopy EGD
today-no gross lesion noted in the entire examined stomach. 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 Colonoscopy 7/6-4 mm polyp was found to transverse colon. Polyp was sessile. Resected. Diverticulosis. No
ibuprofen, naproxen or other NSAIDs today for 5 days after polyp removal. Repeat study in 5 years with outpatient capsule small bowel study. Hemoglobin was trended and did not require blood transfusion. Patient also had intermittent fever with
unclear etiology. Chest x-ray with pulmonary edema. No cough. COVID influenza negative. Blood cultures was negative. UA was negative. Lower extremity venous Doppler was negative for DVT. Post endoscopy patient with severe right-sided headache
and eye pain. CT There is a small amount of inflammatory stranding in the right orbit and there is increased attenuation along the periphery of the right optic nerve as compared with the left (image #13 coronal series). Right optic nerve minimally
larger as compared with the left. 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 Ophthalmology consultation -evaluated
the patient. Patient with no afferent pupillary defect. Patient was seen by Dr. Chidi Nolen. Symptoms started postprocedure and suspecting possibility of corneal abrasion. Also was evaluated by neurology and not concern for multiple
sclerosis. Per ophthalmology recs started patient erythromycin ointment. Patient has appointment with his primary wrapping machine operator next week. Recommend to follow-up keep appointment. Patient be discharged home with VN.
Discharge Plan
-
Patient Disposition: Home with Home Care
Discharge Diagnosis/Procedures: Normocytic anemia status post endoscopy and colonoscopy
Acute on chronic diastolic heart failure exacerbation
Fevers
Right eye pain secondary to likely corneal abrasion
Hyponatremia
Neuropathic pain
Hypomagnesemia
Condition: Fair
Diet: 2 Gram Sodium and Restrict fluids to 48 oz
Activity: With assistance and As tolerated
Driving Restrictions: Not until seen by your Dr
Blood Work: Repeat BMP in 1 week with primary doctor
Other Services: VN
Specialty Instructions: Weigh Daily- Call MD for wt gain/loss 3 lbs overnight/5 lbs in 1 week
Activity Restrictions/Additional Instructions:
Follow-up with your primary wrapping machine operator next week
Follow-up syphilis, Lyme studies and TB testing results with infectious disease and/or primary doctor
Referrals:
Farzana Gamble PA-C [Specified Professional Personl] - 03/03/24 2:00 pm (You have a cardiology follow-up appointment at the [place] office with Dr. Reddy's physician sales support assistant, Farzana. Please call with questions)
Ezio Skelton MD [Active] - in two to four weeks (Follow-up with biopsy results.)
Elijah Jarquin, [Family Provider] - in less than 1 week
Celi Hayward MD [Active] - None
Prescriptions:
New
furosemide 40 mg Tablet
40 mg PO DAILY 30 Days Qty: 30 0RF
erythromycin 5 mg/gram (0.5 %) Ointment
0.5 inch RIGHT EYE QID 7 Days Qty: 3.5 0RF
gabapentin 100 mg Capsule
100 mg PO TID 30 Days Qty: 90 0RF
Continued
multivitamin [Daily Multi-Vitamin] 1 EACH tablet
1 ea PO DAILY
metoprolol succinate 100 MG tablet extended release 24 hr
150 mg PO DAILY
doxazosin [Cardura] 8 MG tablet
8 mg PO DAILY
calcium carbonate-vitamin D3 [Calcium 600 + D(3)] 600 mg-10 mcg (400 unit) Tablet
1 tab PO QPM Qty: 0
metformin 500 MG tablet
500 mg PO BID
tramadol 50 mg Tablet
50 mg PO BIDPRN PRN (Reason: moderate pains)
tramadol 50 MG tablet
50 mg PO HS
cyanocobalamin (vitamin B-12) 1,000 mcg Tablet
1,000 mcg PO DAILY
omeprazole 40 mg Capsule,Delayed Release(Dr/Ec)
40 mg PO DAILY
acetaminophen 500 mg Tablet
1,000 mg PO HSPRN PRN (Reason: rls)
pravastatin 10 mg Tablet
10 mg PO DAILY
ferrous sulfate 325 mg (65 mg iron) Tablet
325 mg PO DAILY
cholecalciferol (vitamin D3) [Vitamin D3] 125 mcg (5,000 unit) Tablet
125 mcg PO DAILY
Glucosamine Chondroitin 550-30-1 mg Capsule
1 cap PO BID
Held
aspirin 81 mg Tablet,Delayed Release (Dr/Ec)
81 mg PO DAILY
Hold Instructions: Resume on 02/27/24.
Discontinued
hydrochlorothiazide 25 MG tablet
25 mg PO DAILY
furosemide [Lasix] 20 mg Tablet
20 mg PO DAILY
Discharge Orders:
Discharge Patient (As Directed); Ordered 02/24/24
Ordered By: Antelmo Pappas
Discharge Date and Time
Print Language: MALDIVIAN
--- NOTE | 2024-02-24 12:07 | CM ---
Addendum entered by Mayi Mak 02/24/24 13:13:
Call back from dtr- requesting WC van be arranged
Transport form completed and WC van arranged for 1700 pickup
Dtr provided costs $140 and will number to call for payment
Update to pt bedside
Discharge Disposition- home with [facility]- WC van transport 1700 pickup
Original Note:
CM reviewed pt with Dr Pappas- ready for dc
Bedside meeting with pt- in agreement with [facility]N
[facility] per request
IMM verbally reviewed- copy provided
requested CM contact son for ride home
VN order on chart
VM left for son with update
Call with dtr- she will arrange for family to transport home after work this evening
[employer] info provided as pt asking for help around home with errands and cannot afford private pay
Discharge Disposition- home with [facility]- family transport
[2024-02-24 12:35] LABS: Syphilis/T. pallidum Ab Reflex Negative (Negative)
[2024-02-24 12:49] LABS: Glucose - Point of Care 205 mg/dl (70-99)
--- NOTE | 2024-02-24 13:45 | VNURNOTE ---
Home Health Liaison met with patient at bedside to discuss [facility] nurse/therapy, visits, schedule and homebound status. Patient is agreeable and understands that visits will be at home will be 1-3 x per week to assess and teach medical management.
[facility] brochure provided with contact information. Patient is aware that [facility] will contact them for start of care after discharge from .
[facility] referral completed in [facility].
[2024-02-24] MEDS: NOVOLOG FLEXPEN-LOW RESISTANCE 2 UNITS SC (14:08)
[2024-02-24 15:00] VITALS: BP 147/66
[2024-02-25 00:56] LABS: ANA, IgG Reflex to HEp-2 None Detected (None Detected)
[2024-02-25 10:12] LABS: Quantiferon Mitogen minus NIL 9.97 IU/mL; Quantiferon NIL 0.03 IU/mL; Quantiferon Plus TB1 minus NIL 0.01 IU/mL (<=0.34); Quantiferon Plus TB2 minus NIL 0.01 IU/mL (<=0.34); Quantiferon TB Gold Plus Negative (Negative)
[2024-02-26 15:58] LABS: Lyme Antibody Screen, EIA Negative (Negative)
== END 2024-02-24 15:35 | disposition home health service (06) | DRG 811 ==
LOC: 4 EAST ACU 08:22
PROVIDERS: Emergency Medicine; Internal Medicine Gastroenterology; Nurse Practitioner Family; ADMITTING PHYSICIAN Hospitalist; ATTENDING PHYSICIAN Hospitalist; CONSULT PHYSICIAN Internal Medicine Cardiovascular Disease; CONSULT PHYSICIAN Internal Medicine Gastroenterology; CONSULT PHYSICIAN Ophthalmology; CONSULT PHYSICIAN Psychiatry & Neurology Neurology; CONSULT PHYSICIAN Student in an Organized Health Care Education/Training Program; EMERGENCY PHYSICIAN Emergency Medicine; FAMILY PHYSICIAN Family Medicine
PROC: 0DJ08ZZ Inspection of Upper Intestinal Tract, Via Natural or Artificial Opening Endoscopic (ICD-10-PCS; 2024-02-20)
PROC: 0DBL8ZX Excision of Transverse Colon, Via Natural or Artificial Opening Endoscopic, Diagnostic (ICD-10-PCS; 2024-02-21)
DX: D50.9 Iron deficiency anemia, unspecified (principal); I50.33 Acute on chronic diastolic (congestive) heart failure; I47.20 Ventricular tachycardia, unspecified; H46.8 Other optic neuritis; E87.1 Hypo-osmolality and hyponatremia; I27.20 Pulmonary hypertension, unspecified; I11.0 Hypertensive heart disease with heart failure; E11.42 Type 2 diabetes mellitus with diabetic polyneuropathy; C61 Malignant neoplasm of prostate; Z66 Do not resuscitate; I07.1 Rheumatic tricuspid insufficiency; E87.6 Hypokalemia; M19.90 Unspecified osteoarthritis, unspecified site; K21.9 Gastro-esophageal reflux disease without esophagitis; K31.89 Other diseases of stomach and duodenum; K63.5 Polyp of colon; K57.30 Diverticulosis of large intestine without perforation or abscess without bleeding; K55.20 Angiodysplasia of colon without hemorrhage; K64.8 Other hemorrhoids; E78.00 Pure hypercholesterolemia, unspecified; E83.42 Hypomagnesemia; R79.89 Other specified abnormal findings of blood chemistry; S05.01XA Injury of conjunctiva and corneal abrasion without foreign body, right eye, initial encounter; X58.XXXA Exposure to other specified factors, initial encounter; I49.3 Ventricular premature depolarization; R50.9 Fever, unspecified; Z79.82 Long term (current) use of aspirin; Z79.84 Long term (current) use of oral hypoglycemic drugs; Z79.899 Other long term (current) drug therapy; Z87.891 Personal history of nicotine dependence; Z87.448 Personal history of other diseases of urinary system; Z86.010 Personal history of colon polyps; Z87.19 Personal history of other diseases of the digestive system; Z88.5 Allergy status to narcotic agent; Z80.6 Family history of leukemia; Z11.52 Encounter for screening for COVID-19
CPT/HCPCS: 88305; 70450; 70543; 70553; 71045; 71046; 80048; 80053; 81003; 82607; 82728; 82746; 82962; 83036; 83540; 83550; 83605; 83735; 83880; 84145; 84443; 84484; 85025; 85652; 85730; 86038; 86140; 86480; 86618; 86780; 86850; 86900; 86901; 87015; 87040; 87207; 87502; 87811; 93005; 93306; 93970; 97116; 97162; 97166; 97530; 97535; 99285; A9575